=== PATIENT | male | born 1945 | race Caucasian/White ===

== ENCOUNTER 2020-07-01 18:00 | Inpatient (IN) ==
[2020-07-01] MEDS ORDERED: SODIUM CHLORIDE 0.9% 500 ML IV SCH (18:30)
--- NOTE | 2020-07-01 18:35 | Emergency Department Note ---
Impression & Plan Metabolic encephalopathy, NSTEMI (non-ST elevated myocardial infarction), Elevated serum creatinine, Sepsis ED Provider Note Provider: Saurabh Kim MD DATE OF SERVICE:07/01/2020 CHIEF COMPLAINT: Fever, shortness of breath HISTORY OF PRESENT ILLNESS: Patient is a 75-year-old gentleman presenting via ambulance from [facility] today due to persistent fever and shortness of breath and wheezing. Patient himself is quite hard of hearing and is difficult to obtain significant history from him. Report from facility indicate that he had persistent high fever starting today seem to be a wheezing was less oriented than normal. Was given some prednisone earlier today as well as albuterol with persistent systems. Was not noted to be hypoxic there but with some mildly labored breathing per the pre-arrival report. Again the patient himself is unable to participate and provide detailed history. He complains of some pain in his lower legs but otherwise is difficult to obtain more from him. There is no trauma history reported. Patient's records from [facility] were reviewed. He has limited records in our medical system here. Reportedly had a temperature of's high as 102.5 that after Tylenol around 4:30 PM this evening fell to 100. REVIEW OF SYSTEMS: Limited secondary to his mental status and ability to communicate PAST MEDICAL HISTORY: As noted above and for medical records apparently thrombocytopenia, depression, alcohol abuse, pneumonia, dysphasia, acetabular fracture, chronic respiratory failure are noted. MEDICATIONS: Reviewed the MAR from the facility SOCIAL HISTORY: Resident of [facility], additional limited secondary to his mental status. PHYSICAL EXAM: GENERAL: alert to loud verbal stimuli on the stretcher. Head: normocephalic and atraumatic EYES: No injection, discharge or icterus. PERRL. NECK: Trachea midline. Supple. ENT: Mucous membranes pink and moist. LUNGS: Airway patent. No retractions. Some audible wheezing and wheezing on auscultation of the lungs. HEART: Regular rate and rhythm. No chest wall tenderness ABDOMEN: Soft and non-tender, without guarding or rebound. SKIN: Acyanotic, warm, dry, without rashes EXTREMITIES: 1+ left lower leg edema noted. Trace edema of the right lower leg. NEUROLOGICAL: Moves all extremities and withdraws to pain in all extremities. Extremely difficult of hearing. Written communication sometimes gets an appropriate answer. EK bpm normal sinus rhythm without PVC. There is some baseline artifact but no clear ST segment elevation. Question some inferior T wave inversions. Right bundle branch block is noted. V5 V6 T wave inversions also noted. No previous EKGs are available. CONTINUOUS CARDIAC MONITORING: was ordered and showed a heart rate of 72 bpm in normal sinus rhythm Patient's laboratory studies and imaging reviewed. Differential includes Infection, dehydration, metabolic abnormality, hypo/hyperglycemia, electrolyte disturbance, anemia, hypoxia, cardiac sources, i ntracerebral event, toxicologic, neurologic, as well as other pathologies. IMPRESSION/MEDICAL DECISION MAKING: Patient is reports of persistent fever days and wheezing with change in mentation. Patient here is very difficult to obtain history from. Limited records in our system. Reviewed paperwork sent from [facility] as well as available records in [facility] from the [facility] orthopedic appointment. Not having significant focal deficits grossly on exam here. CT the head was completed dalyvenkat saavedra to look for acute intracranial abnormality. Audibly wheezing here and chest x-ray obtained. X-ray that evidence of pneumonia or pneumothorax. Again limited history is available wonder if he has underlying pulmonary disease such as COPD or emphysema perhaps. Given magnesium here initially to see if this would help with wheeze. As he is from a [facility] with fever and respiratory issues, COVID test was ordered. Basic labs and cultures and lactate were sent as well. EKG obtained. Lower suspicion this is acute coronary syndrome. Not significantly hypoxic here and fevers resolved by time of arrival. Patient does have a little bit of edema in the legs question of this could represent some slight fluid overload. Laboratory histo significant leukocytosis of 18.8 and mild anemia. Given this reports a fever today covered appear clear with Zosyn to cover broadly including any possible anaerobes if there was may be an aspiration event. CT of the head without any definite acute intracranial abnormality although there is some motion artifact. Patient does not have significant neck stiffness or tenderness and low suspicion at this point for meningitis. No transaminitis. Pro calcitonin 0.5. TSH within normal limits. CRP is elevated at 19 and troponin is found to 0.306. Lactate elevated at 3. Creatinine appears newly elevated 1.4. Given some hydration here. Covered with Zosyn initially. EKG question some T wave inversions but no clear ST segment elevation. Patient is on aspirin daily. Question if the troponin is demand related to possible infectious source and dehydration. Given IVF. Unsure of exact etiology of the confusion could be related to possible infectious source. No clear source of infection. Given this discussed with the hospitalist for further evaluation as an inpatient. COVID negative. DIAGNOSIS: Metabolic encephalopathy, NSTEMI, elevated creatinine, sepsis DISPOSITION: Hospitalist will evaluate Past Med/Surg History Social History Smoking Status: Unknown if ever smoked Hx Alcohol Use: No Hx Substance Use: No Preferred Language: Tajik Communication Ability: Impaired Manager Community Required: No Current Living Situation: Senior Living Feels Safe at Home: Yes Allergies Allergies Allergy/AdvReac Type Severity Reaction Status Date / Time Tetanus Vaccines and Toxoid Allergy Unknown Unverified 07/01/20 19:42 Home Meds Home Medications Medication Instructions Recorded Confirmed acetaminophen 650 mg PO QID 07/01/20 07/01/20 albuterol sulfate 1.25 mg CONTINUOUS NEBULIZATION QID 07/01/20 07/01/20 aspirin [Aspir-81] 81 mg PO DAILY 07/01/20 07/01/20 carbamide peroxide [Debrox] 2 drp OTB QID 07/01/20 07/01/20 docusate sodium 100 mg PO BID 07/01/20 07/01/20 ferrous sulfate 325 mg PO BID 07/01/20 07/01/20 folic acid 1 mg PO DAILY 07/01/20 07/01/20 lorazepam 0.5 mg PO BID 07/01/20 07/01/20 methyl salicylate-menthol [Bengay 1 applic TOPICAL BID PRN 07/01/20 07/01/20 Greaseless] multivitamin with minerals 1 tab PO DAILY 07/01/20 07/01/20 [Multiple Vitamin-Minerals] oxycodone 5 mg PO BID 07/01/20 07/01/20 oxycodone 5 mg PO Q4H PRN 07/01/20 07/01/20 paroxetine HCl 10 mg PO HS 07/01/20 07/01/20 prednisone 60 mg PO .ONE TIME ONLY 07/01/20 07/01/20 quetiapine 25 mg PO QPM 07/01/20 07/01/20 zinc oxide 1 applic TOPICAL .PRN PRN 07/01/20 07/01/20 zinc oxide 1 applic TOPICAL AMPM 07/01/20 07/01/20 Results & Data (ED) Vital Signs Vital Signs - 24 hr 07/01/20 18:12 07/01/20 19:20 07/01/20 19:30 Temperature 37.2 C Temperature Source Oral Pulse Rate 88 80 76 Pulse Rate from SpO2 Sensor 80 77 Respiratory Rate 18 21 22 Blood Pressure 128/75 111/56 L 99/45 L Blood Pressure Mean 92 72 64 Pulse Oximetry 97 96 95 Oxygen Delivery Method Room Air Sepsis Recent Fever Within 48 Hours Yes Sepsis New/Unexplained Change in Mental Status No Sepsis Action Taken by Nursing Physician Notified 07/01/20 20:00 07/01/20 20:31 07/01/20 21:00 Temperature Temperature Source Pulse Rate 77 80 83 Pulse Rate from SpO2 Sensor 77 82 83 Respiratory Rate 20 18 19 Blood Pressure 101/64 101/65 102/55 L Blood Pressure Mean 80 79 62 Pulse Oximetry 96 97 97 Oxygen Delivery Method Sepsis Recent Fever Within 48 Hours Sepsis New/Unexplained Change in Mental Status Sepsis Action Taken by Nursing 07/01/20 21:30 Temperature Temperature Source Pulse Rate 85 Pulse Rate from SpO2 Sensor Respiratory Rate 20 Blood Pressure 109/56 L Blood Pressure Mean 59 Pulse Oximetry 100 Oxygen Delivery Method Sepsis Recent Fever Within 48 Hours Sepsis New/Unexplained Change in Mental Status Sepsis Action Taken by Nursing Laboratory Data Result diagrams: 07/01/20 18:58 07/01/20 18:58 Lab Results 07/01/20 07/01/20 07/01/20 Range/Units 18:58 18:58 18:58 WBC 18.84 H (4.8-10.8) K/uL RBC 4.44 L (4.7-6.1) M/uL Hgb 11.7 L (14.0-18.0) g/dL Hct 37.4 L (42-52) % MCV 84.2 (80-100) fL MCH 26.4 (25-34) pg MCHC 31.3 L (32-36) g/dL RDW Std Deviation 50.6 H (36.4-46.3) fL RDW Coeff of Ceferino 16.3 H (11.5-14.5) % Plt Count 280 (130-400) K/uL MPV 10.4 (7.4-10.4) fL Immature Gran % (Auto) 0.3 % Neut % (Auto) 90.8 % Lymph % (Auto) 3.3 % Ray % (Auto) 5.5 % Eos % (Auto) 0.0 % Baso % (Auto) 0.1 % Neut # (Auto) 17.10 H (1.4-6.5) K/uL Lymph # (Auto) 0.63 L (1.2-3.4) K/uL Ray # (Auto) 1.04 H (0.11-0.59) K/uL Eos # (Auto) 0.00 (0-0.5) K/uL Baso # (Auto) 0.01 (0-0.2) K/uL Immature Gran # (Auto) 0.06 H (0.00-0.02) K/uL PT 11.8 (9.0-12.0) Seconds INR 1.1 (0.9-1.1) VBG pH (7.36-7.41) VBG pCO2 (38-50) mmHg VBG pO2 mmHg VBG HCO3 mmol/L VBG O2 Saturation % VBG Base Excess mEq/L Barometric Pressure mm/Hg Sodium 138 (136-145) mmol/L Potassium 3.9 (3.5-5.1) mmol/L Chloride 105 (98-107) mmol/L Carbon Dioxide 25 (21-32) mmol/L Anion Gap 8.0 (3-11) BUN 35 H (7-18) mg/dl Creatinine 1.41 H (0.6-1.4) mg/dl Est Cr Clr Drug Dosing Not Reportable Est GFR ( Amer) 55.3 Est GFR (Non-Af Amer) 47.7 BUN/Creatinine Ratio 24.9 H (10-20) Glucose 164 H (70-99) mg/dl Lactate (0.4-2.0) mmol/L Calcium 9.0 (8.5-10.1) mg/dl Total Bilirubin 0.6 (0.2-1) mg/dl AST 28 (15-37) U/L ALT 39 (12-78) U/L Alkaline Phosphatase 110 (45-117) U/L Troponin I 0.306 H* (0-0.045) ng/ml C-Reactive Protein 19.30 H (0-0.29) mg/dl Total Protein 7.9 (6.4-8.2) gm/dl Albumin 3.2 L (3.4-5.0) gm/dl Globulin 4.7 H (2.5-4.0) gm/dl Albumin/Globulin Ratio 0.7 L (0.9-2) Lipase 24 L (73-393) U/L Procalcitonin (0-0.5) ng/ml TSH 0.496 (0.300-4.500) uIu/ml COVID-19 Eval Order COVID-19 PCR (Negative) 07/01/20 07/01/20 07/01/20 Range/Units 18:58 18:58 19:43 WBC (4.8-10.8) K/uL RBC (4.7-6.1) M/uL Hgb (14.0-18.0) g/dL Hct (42-52) % MCV (80-100) fL MCH (25-34) pg MCHC (32-36) g/dL RDW Std Deviation (36.4-46.3) fL RDW Coeff of Ceferino (11.5-14.5) % Plt Count (130-400) K/uL MPV (7.4-10.4) fL Immature Gran % (Auto) % Neut % (Auto) % Lymph % (Auto) % Ray % (Auto) % Eos % (Auto) % Baso % (Auto) % Neut # (Auto) (1.4-6.5) K/uL Lymph # (Auto) (1.2-3.4) K/uL Ray # (Auto) (0.11-0.59) K/uL Eos # (Auto) (0-0.5) K/uL Baso # (Auto) (0-0.2) K/uL Immature Gran # (Auto) (0.00-0.02) K/uL PT (9.0-12.0) Seconds INR (0.9-1.1) VBG pH (7.36-7.41) VBG pCO2 (38-50) mmHg VBG pO2 mmHg VBG HCO3 mmol/L VBG O2 Saturation % VBG Base Excess mEq/L Barometric Pressure mm/Hg Sodium (136-145) mmol/L Potassium (3.5-5.1) mmol/L Chloride (98-107) mmol/L Carbon Dioxide (21-32) mmol/L Anion Gap (3-11) BUN (7-18) mg/dl Creatinine (0.6-1.4) mg/dl Est Cr Clr Drug Dosing Est GFR ( Amer) Est GFR (Non-Af Amer) BUN/Creatinine Ratio (10-20) Glucose (70-99) mg/dl Lactate 3.1 H* (0.4-2.0) mmol/L Calcium (8.5-10.1) mg/dl Total Bilirubin (0.2-1) mg/dl AST (15-37) U/L ALT (12-78) U/L Alkaline Phosphatase (45-117) U/L Troponin I (0-0.045) ng/ml C-Reactive Protein (0-0.29) mg/dl Total Protein (6.4-8.2) gm/dl Albumin (3.4-5.0) gm/dl Globulin (2.5-4.0) gm/dl Albumin/Globulin Ratio (0.9-2) Lipase (73-393) U/L Procalcitonin 0.50 (0-0.5) ng/ml TSH (0.300-4.500) uIu/ml COVID-19 Eval Order Covid19 Done at [facility] COVID-19 PCR (Negative) 07/01/20 07/01/20 Range/Units 19:43 20:15 WBC (4.8-10.8) K/uL RBC (4.7-6.1) M/uL Hgb (14.0-18.0) g/dL Hct (42-52) % MCV (80-100) fL MCH (25-34) pg MCHC (32-36) g/dL RDW Std Deviation (36.4-46.3) fL RDW Coeff of Ceferino (11.5-14.5) % Plt Count (130-400) K/uL MPV (7.4-10.4) fL Immature Gran % (Auto) % Neut % (Auto) % Lymph % (Auto) % Ray % (Auto) % Eos % (Auto) % Baso % (Auto) % Neut # (Auto) (1.4-6.5) K/uL Lymph # (Auto) (1.2-3.4) K/uL Ray # (Auto) (0.11-0.59) K/uL Eos # (Auto) (0-0.5) K/uL Baso # (Auto) (0-0.2) K/uL Immature Gran # (Auto) (0.00-0.02) K/uL PT (9.0-12.0) Seconds INR (0.9-1.1) VBG pH 7.44 H (7.36-7.41) VBG pCO2 35 L (38-50) mmHg VBG pO2 33 mmHg VBG HCO3 23 mmol/L VBG O2 Saturation < 60.0 % VBG Base Excess -0.7 mEq/L Barometric Pressure 737.5 mm/Hg Sodium (136-145) mmol/L Potassium (3.5-5.1) mmol/L Chloride (98-107) mmol/L Carbon Dioxide (21-32) mmol/L Anion Gap (3-11) BUN (7-18) mg/dl Creatinine (0.6-1.4) mg/dl Est Cr Clr Drug Dosing Est GFR ( Amer) Est GFR (Non-Af Amer) BUN/Creatinine Ratio (10-20) Glucose (70-99) mg/dl Lactate (0.4-2.0) mmol/L Calcium (8.5-10.1) mg/dl Total Bilirubin (0.2-1) mg/dl AST (15-37) U/L ALT (12-78) U/L Alkaline Phosphatase (45-117) U/L Troponin I (0-0.045) ng/ml C-Reactive Protein (0-0.29) mg/dl Total Protein (6.4-8.2) gm/dl Albumin (3.4-5.0) gm/dl Globulin (2.5-4.0) gm/dl Albumin/Globulin Ratio (0.9-2) Lipase (73-393) U/L Procalcitonin (0-0.5) ng/ml TSH (0.300-4.500) uIu/ml COVID-19 Eval Order COVID-19 PCR NEGATIVE (Negative) Administered Medications Vancomycin HCl 2,000 mg/ (Sodium Chloride) 540 mls @ 200 mls/hr IV TODAY@0000 CHRISTIN; Protocol Stop: 07/02/20 02:41 Last Admin: 07/01/20 23:52 Dose: 200 mls/hr Documented by: [id number] Lactated Ringer's (Lr) 1,000 mls @ 125 mls/hr IV .Q8H CHRISTIN Stop: 07/31/20 23:21 Last Admin: 07/01/20 23:40 Dose: 125 mls/hr Documented by: [id number] Discontinued Medications Aspirin (Aspirin Chew 324 Mg) 324 mg PO NOW STA Stop: 07/01/20 20:40 Last Admin: 07/01/20 21:08 Dose: 324 mg Documented by: [id number] Sodium Chloride (Nss) 500 mls @ 999 mls/hr IV .Q31M CHRISTIN Stop: 07/01/20 19:00 Last Infusion: 07/01/20 22:47 Dose: 0 mls/hr Documented by: [id number] Admin: 07/01/20 20:46 Dose: 999 mls/hr Documented by: [id number] Magnesium Sulfate/Dextrose (Magnesium Sulfate / D5w) 1 gm in 100 mls @ 400 mls/hr IV Q15M CHRISTIN Stop: 07/01/20 18:59 Last Infusion: 07/01/20 22:46 Dose: 0 mls/hr Documented by: [id number] Admin: 07/01/20 20:29 Dose: 400 mls/hr Documented by: [id number] Piperacillin Sod/Tazobactam Sod (Zosyn) 4.5 gm in 120 mls @ 240 mls/hr IV NOW ONE Stop: 07/01/20 19:50 Last Infusion: 07/01/20 22:47 Dose: 0 mls/hr Documented by: [id number] Admin: 07/01/20 20:29 Dose: 240 mls/hr Documented by: [id number] Sodium Chloride (Nss) 500 mls @ 999 mls/hr IV .Q31M ONE Stop: 07/01/20 20:22 Last Infusion: 07/01/20 22:47 Dose: 0 mls/hr Documented by: [id number] Admin: 07/01/20 21:08 Dose: 999 mls/hr Documented by: [id number] Discharge Plan Visit Data Chief Complaint: Fever Stated Complaint: FEVER, SOB ED Provider: Saurabh Kim Discharge Problem: Metabolic encephalopathy, NSTEMI (non-ST elevated myocardial infarction), Elevated serum creatinine, Sepsis Patient Disposition: Admitted As Inpatient Discharge Instructions Interventions: ED Discharge Assessment Last Done: 07/01/20 22:49 Discharge Problem: Sepsis Qualifiers: Sepsis type: sepsis due to unspecified organism Sepsis acute organ dysfunction status: with acute organ dysfunction Severe sepsis acute organ dysfunction type: encephalopathy Severe sepsis shock status: without septic shock Qualified Code(s): A41.9 - Sepsis, unspecified organism
--- NOTE | 2020-07-01 18:42 | XRay Report ---
XR chest 1V portable HISTORY: Fever. Shortness of breath. COMPARISON: None. FINDINGS: Mild diffuse interstitial thickening. This is likely chronic. No focal lung consolidations. No pleural effusions. No pneumothorax. The heart is mildly enlarged. Chronic deformity within the ri ght humeral head. IMPRESSION: Cardiomegaly and mild diffuse interstitial thickening which is likely chronic. No focal lung consolid ations. ACT 112: Negative or not required by law. Electronically signed by: Kendall Gong M.D. 07/01/2020 6:40 PM
[2020-07-01] MEDS ORDERED: MAGNESIUM SULFATE / D5W 1 GM/100 ML BAG IV SCH (18:45)
[2020-07-01 19:15] LABS: Basophils # (auto) 0.01 K/uL (0-0.2); Basophils % (auto) 0.1 %; Hematocrit (blood only) 37.4 % (42-52); Hemoglobin 11.7 g/dL (14.0-18.0); Immature Granulocytes # (auto) 0.06 K/uL (0.00-0.02); Immature Granulocytes % (auto) 0.3 %; Lymphocytes # (auto) 0.63 K/uL (1.2-3.4); Lymphocytes % (auto) 3.3 %; Mean Corpuscular Hemoglobin 26.4 pg (25-34); Mean Corpuscular Hgb Conc 31.3 g/dL (32-36); Mean Corpuscular Volume 84.2 fL (80-100); Mean Platelet Volume 10.4 fL (7.4-10.4); Monocytes # (auto) 1.04 K/uL (0.11-0.59); Monocytes % (auto) 5.5 %; Neutrophils % (auto) 90.8 %; Platelet Count 280 K/uL (130-400); RDW Coefficient of Variation 16.3 % (11.5-14.5); RDW Standard Deviation 50.6 fL (36.4-46.3); Red Blood Count 4.44 M/uL (4.7-6.1); White Blood Count 18.84 K/uL (4.8-10.8)
[2020-07-01] MEDS ORDERED: PIPERACILL/TAZOBAC CONSULT ACTIVE PRN ×2 (19:21→23:22)
[2020-07-01] MEDS ORDERED: PIPERACILLIN/TAZOBACTAM 4.5 GM/120 ML BAG IV ONE (19:21)
--- NOTE | 2020-07-01 19:25 | CT Scan Report ---
HEAD CT NONCONTRAST CT DOSE: 1919.58 mGy.cm HISTORY: Altered mental status. TECHNIQUE: Multiaxial CT images of the head were performed without the use of intravenous contrast. A utomated exposure control was utilized for this study. A dose lowering technique was utilized adheri ng to the principles of ALARA. Comparison: None. Findings: The paranasal sinuses and mastoid air cells are clear. The calvarium and skull base are int act. There is no mass, hematoma, midline shift, acute infarct. White matter hypodensity is nonspecifi c but suggestive of microvascular ischemic change. The ventricles and sulci demonstrate mild age-rela peter involutional changes. Motion artifact. Impression: Motion artifact. No definite acute intracranial abnormality. ACT 112: Negative or not required by law. Electronically signed by: Kendall Gong M.D. 07/01/2020 7:24 PM
[2020-07-01 19:35] LABS: INR 1.1 (0.9-1.1); Prothrombin Time 11.8 Seconds (9.0-12.0)
[2020-07-01 19:41] LABS: Alanine Aminotransferase 39 U/L (12-78); Albumin Level 3.2 gm/dl (3.4-5.0); Aspartate Aminotransferase 28 U/L (15-37); BUN Creatinine Ratio 24.9 (10-20); Blood Urea Nitrogen 35 mg/dl (7-18); Carbon Dioxide 25 mmol/L (21-32); Chloride 105 mmol/L (98-107); Est GFR (African American) 55.3; Est GFR (Non-African American) 47.7; Glucose 164 mg/dl (70-99); Lipase 24 U/L (73-393); Potassium 3.9 mmol/L (3.5-5.1); Sodium 138 mmol/L (136-145)
[2020-07-01] MEDS ORDERED: SODIUM CHLORIDE 0.9% 500 ML IV ONE (19:52)
[2020-07-01 19:57] LABS: Albumin Globulin Ratio 0.7 (0.9-2); Alkaline Phosphatase 110 U/L (45-117); Bilirubin,Total 0.6 mg/dl (0.2-1); Globulin 4.7 gm/dl (2.5-4.0); Thyroid Stimulating Hormone 0.496 uIu/ml (0.300-4.500); Total Protein 7.9 gm/dl (6.4-8.2); Troponin I 0.306 ng/ml (0-0.045)
[2020-07-01] MEDS ORDERED: ASPIRIN CHEW 324 MG PO STA (20:39)
[2020-07-01 21:26] LABS: Base Excess VBG -0.7 mEq/L; HCO3 VBG 23 mmol/L; PCO2 VBG 35 mmHg (38-50); PO2 VBG 33 mmHg; pH VBG 7.44 (7.36-7.41)
[2020-07-01 21:28] LABS: Oxygen Saturation VBG < 60.0 %
--- NOTE | 2020-07-01 21:50 | History & Physical Report ---
Date of Service July 01, 2020 Assessment & Plan (1) Sepsis: Alberto Galindo is a 75 year old man with a past medical history significant for dementia, iron deficiency anemia, Depression, and recent hip fracture status post repair here with fever starting around lunchtime today Sepsis Unclear cause, Some nonspecific interstitial opacities on cxr, still waiting on ruine results Will empirically start on vancomycin and zosyn Blood cultures drawn Given 2 L NSS in ED blood pressure has responded will continue with LR at 125 mls/hour CT chest ordered for nonspecific CXR and wheezing/rales increased work of breathing CT abdomen pelvis ordered for grimacing on palpation Acute metabolic encephalopathy Acute, was having full conversations last week. Likely secondary to his infectious insult Will treat empirically as above, and monitor closely Head CT negative NSTEMI Elevated troponin likely secondary to demand ischemia No clear ischemic changes on ECG WIll trend troponins and get daily ecg to assess for changes as he cannot relate chest pain. ANGELITO No baseline, but creatinine elevated to 1.41 Patient appears dehydrated with dry mucus membranes, no JVD visible, Will rehydrate and recheck BMP tomorrow Iron deficiency anemia Holding PO meds until mental status improves enough to take meds Will restart iron once tolerating PO intake Depression Holding PO meds until mental status improves Hip Fracture Will hold Oxycodone for now, if patient appears to be in pain and mental status improves can reevaluate pain medication F/E/N: LR 125 DVT PPx: lovenox Dispo: Admit for FLuid resuscitation IV vanc and zosyn, Blood and urine culture results and further testing DNR/DNI (2) Metabolic encephalopathy: (3) Dementia: (4) NSTEMI (non-ST elevated myocardial infarction): (5) Elevated serum creatinine: History of Present Illness Chief Complaint: Sepsis Primary Care Provider: [facility] Alberto Galindo is a 75 year old man with a past medical history of Cognitive deficit/dementia, alcochol abuse, tobacco abuse, hip fracture in January of this year repaired by [facility] orthopedics who now resides in [facility]. Per [facility] patient started to develop a fever around lunchtime today he had been well previously despite his baseline dementia. At baseline he is able to converse though he becomes easily confused. On presentation to ED patient is hypotensive tachypneic, pulse is regular, Saturating 100 % on room air. Labwork significant for elevated white blood cell count of 18.84, Anemic with hemoglobin of 11.7, ELevated creatinine of 1.41 BUN of 35. Troponin of .306, CRP of 19.3, COVID testing negative. Head CT singificant for some microvascular ischemic changes, chest XR with nonspecific interstitial thickening. He is unable to give me any history at all. Spoke to daughter in law over phone who told me last weekend patient was able to carry on conversation and this is a major change for him. She would like us to continue his DNR/DNI from [facility] as she feels these are likely his wishes. Allergies Allergy/AdvReac Type Severity Reaction Status Date / Time Tetanus Vaccines and Toxoid Allergy Unknown Unverified 07/01/20 19:42 Home Medications Home Medications Medication Instructions Recorded Confirmed Type acetaminophen 650 mg PO QID 07/01/20 07/01/20 History albuterol sulfate 1.25 mg CONTINUOUS NEBULIZATION QID 07/01/20 07/01/20 History aspirin [Aspir-81] 81 mg PO DAILY 07/01/20 07/01/20 History carbamide peroxide [Debrox] 2 drp OTB QID 07/01/20 07/01/20 History docusate sodium 100 mg PO BID 07/01/20 07/01/20 History ferrous sulfate 325 mg PO BID 07/01/20 07/01/20 History folic acid 1 mg PO DAILY 07/01/20 07/01/20 History lorazepam 0.5 mg PO BID 07/01/20 07/01/20 History methyl salicylate-menthol [Bengay 1 applic TOPICAL BID PRN 07/01/20 07/01/20 History Greaseless] multivitamin with minerals 1 tab PO DAILY 07/01/20 07/01/20 History [Multiple Vitamin-Minerals] oxycodone 5 mg PO BID 07/01/20 07/01/20 History oxycodone 5 mg PO Q4H PRN 07/01/20 07/01/20 History paroxetine HCl 10 mg PO HS 07/01/20 07/01/20 History prednisone 60 mg PO .ONE TIME ONLY 07/01/20 07/01/20 History quetiapine 25 mg PO QPM 07/01/20 07/01/20 History zinc oxide 1 applic TOPICAL .PRN PRN 07/01/20 07/01/20 History zinc oxide 1 applic TOPICAL AMPM 07/01/20 07/01/20 History Past Med/Surg History Social History Smoking Status: Unknown if ever smoked Hx Alcohol Use: No Hx Substance Use: No Preferred Language: Yi Communication Ability: Impaired Cellular Equipment Repairer Required: No marital status: Unknown Current Living Situation: Detention Feels Safe at Home: Yes Assistive Devices: None Review of Systems Review of Systems: Unobtainable due to cognitive status Physical Exam Constitutional: + acute distress, + ill appearing and + behavioral limitations (screaming with nurses groaning and grimacing only for me) Eyes: PERRL, conjunctivae normal, anicteric sclerae ENMT: external ear and nose normal, oropharynx normal Lips cracked tongue and mucus membranes dry Neck: trachea midline, no thyromegaly Respiratory: + retractions and + uses accessory muscles Auscultation: + diminished lung sounds, + rales and + wheezes Cardiovascular: Rate/Rhythm: regular rate and regular rhythm Heart Sounds: no murmur and no cardiac rub Vessels: normal peripheral pulses and dorsalis pedis pulses present Extremities: + edema (Bilateral 2 + pitting edema) Gastrointestinal (Abdomen): normal bowel sounds, patient grimacing with palpation, no masses or organomegaly Skin: no rashes, warm and dry Psychiatric: A+Ox3, euthymic affect Awake oriented x 0 grunting and grimacing for me only screams unintelligibly at the nurse Results & Data Results & Data ([facility]) Vital Signs (Past 12 Hours) Vital Signs Temp Pulse Resp BP Pulse Ox 07/01/20 20:00 77 20 101/64 96 07/01/20 19:30 76 22 99/45 L 95 07/01/20 19:20 80 21 111/56 L 96 07/01/20 18:12 37.2 C 88 18 128/75 97 Supervising Physician Co-Signing Physician Notes Attending addendum: I have physically seen this patient, have supervised the medical residents activities, and agree with the H&P unless as otherwise noted. Assessment and Plan: Non-STEMI- The patient will be admitted to telemetry for serial cardiac enzymes, serial EKG's, cardiac rhythm monitoring and a 2-D echocardiogram with Dopplers. Troponin 0.306 upon admission Continue aspirin 81 mg daily. Sepsis/metabolic encephalopathy- Empiric treatment with vancomycin IV and Zosyn IV per pharmacokinetic monitoring. Follow urine cultures and blood cultures. Patient received and responded to initial ED bolus of 2 L normal saline. Continue rehydration with LR at 125 mL's per hour Follow clinical examination Remainder of orders and notations as noted. Resident Activity Tracking Resident Involvement: Resident Care Provided Care Provided: Adult Hospital Medicine
[2020-07-01] MEDS ORDERED: VANCOMYCIN CONSULT ACTIVE PRN (23:22)
[2020-07-01] MEDS: LACTATED RINGER'S 1,000 ML IV SCH (23:40)
[2020-07-01] MEDS ORDERED: PATIENT'S HEIGHT AND/OR WEIGHT NEEDED SCH (23:45)
[2020-07-02] MEDS ORDERED: VANCOMYCIN HCL 2,000 MG in SODIUM CHLORIDE 0.9% 500 ML IV SCH
[2020-07-02] MEDS: PIPERACILLIN/TAZOBACTAM 3.375 GM in DEXTROSE 5% 100 ML IV SCH (03:59)
--- NOTE | 2020-07-02 07:16 | Hospitalist Progress Note ---
Date of Service July 02, 2020 Assessment & Plan (1) Sepsis: 75 y/o M hx dementia, DELON, depression, hip fx s/p repair 01/2020 who presents from [facility] w/ fever since ~noon on 07/01/20 sepsis from bacteremia, source unknown, acute metabolic encephalopathy - source less likely PNA given lung findings. consider urinary source. defer CT abd/pelv at this time given pros/cons and level of suspicion - BC+ for MRSA. - fever trend: afebrile during this admission w/ exception of 38.6C this AM, since defeversed. reassuring - leukocytosis 18.84. H/H 11.7/37.4. vbg ph 7.44H. pco2 35L. trop .306->.188->0.164 crp 19.3H. lipase 24L. procal wnl. neg covid 07/01 - started on IV vanc/zosyn on admission. switched to IV vanc/cefepime given context of ANGELITO - ordered UA/culture, unable to obtain today because patient unable to cooperate. note that culture will be collected AFTER starting IV abx. continue monitoring of mentation. speech eval when mentation improves. - update on mentation at 5pm. patient is able to converse, but is extremely hard of hearing. On ear exam, he has cerumen in the L ear, but not the right and is able to hear when talking loudly close to his right ear. plan: flush out L ear. will switch from NPO to pureed diet given that patient mentation is much improved. I observed as he sipped water from cup. elevated troponin likely secondary to demand ischemia - ecg not consistent w/ acute infarct. some q wave old infarct findings. compared 07/01 w/ 07/02 for clarification of findings. NSR. RBBB vs. incomplete RBBB. - follow troponins. assess for chest pain when patient able to provide hx likely ANGELITO, baseline unknown - bun/cr 35/1.41 - continue LR 125 wheezing - home med albuterol nebulizer 1.25mg. - increased to 2.5mg which is standard dose. per chart review and pt presentation of symptoms and pt weight, more appropriate R shoulder/arm pain - ordered sling depression - holding PO meds until mental status improves enough to take medications iron-deficiency anemia secondary to chronic blood loss - per outside records from [facility] - H/H per above, anemia is mild - holding PO meds - follow cbc FEN/GI: LR 125. Lovenox for dvt ppx. code status: dnr/dni. dispo: PCU/tele (2) Metabolic encephalopathy: (3) Dementia: (4) Iron deficiency anemia: (5) Wheezing: (6) Depression: Admission and Anticipated Discharge Date Admission Date: July 01, 2020 Supervising Physician Co-Signing Physician Notes I personally examined the patient and verified all carrera points of history and exam, discussed case, and agree with decision making with Dr Pate. hard to really glean any HPI or ROS but at least will make eye contact. seems quite confused and hard of hearing, this plus PPE requirements for COVID pandemic making communication even with slow, deliberate, loud voice very difficult. as best i can tell he would like a sling for his shoulder. vitals noted nad heent nc at mmm. breathing unlabored - has upper airway wheezing type sound without true stridor (is laying in bed curled forward wtih head leaning down) but no rrw good effort. abd soft nd nt no guarding no rigidity. ext no c/c probably ~1+ edema no calf tenderness. skin no rashes no pallor or icterus severe sepsis/septic related ANGELITO - source not clear. by process of elimination probably either UTI or bacteremia. continue broad abx pending cultres - of note urine was not sent initially so while we've ordered it now, it will be after he has had several doses of broad abx. fluids, follow. fortunately looking more stable. severe sepsis due to sepsis, ANGELITO, metabolic/septic encephalopathy. otherwise as above Subjective Patient would say a few phrases such as "is it raining right now?" "look at that ball" "am I going to get food?," but then the speech becomes yelling and incoherent. Complaining of R hip pain and R shoulder pain. Review of Systems Review of Systems: could not obtain ROS due to altered mental status/confusion at time of visit. Msk: + R shoulder/arm pain Physical Exam Physical Exam: General: A&Ox0. confused. not responding to my questions HEENT: Atraumatic, normocephalic. EOMI. dry mm, mildly fissured tongue Pulm: audible panting/wheezing w/o auscultation. shallow breaths on auscultation bilaterally w/ some mild left lung expiratory wheezes. no neck stridor. Cardiac: RRR, -mrg. Radial pulses 2+ bilat Abdominal: Nontender, nondistended, soft. no abd ttp. normal bowel sounds. Results & Data Results & Data ([facility]) Vital Signs (Past 12 Hours) Vital Signs Temp Pulse Pulse Pulse Resp BP BP 07/02/20 07:08 38.6 C H 93 H 24 146/77 H 07/02/20 04:38 37.5 C 87 24 138/69 07/02/20 00:09 36.9 C 73 22 118/76 07/01/20 23:32 37 C 79 28 H 112/53 L 07/01/20 23:22 73 07/01/20 22:30 82 20 105/61 07/01/20 21:30 85 20 109/56 L 07/01/20 21:00 83 19 102/55 L 07/01/20 20:31 80 18 101/65 07/01/20 20:00 77 20 101/64 07/01/20 19:30 76 22 99/45 L 07/01/20 19:20 80 21 111/56 L Pulse Ox 07/02/20 07:08 90 07/02/20 04:38 97 07/02/20 00:09 97 07/01/20 23:32 97 07/01/20 23:22 07/01/20 22:30 07/01/20 21:30 100 07/01/20 21:00 97 07/01/20 20:31 97 07/01/20 20:00 96 07/01/20 19:30 95 07/01/20 19:20 96 Resident Activity Tracking Resident Involvement: Resident Care Provided Care Provided: Adult Hospital Medicine (1) Sepsis Sepsis acute organ dysfunction status: with acute organ dysfunction Sepsis type: sepsis due to unspecified organism Severe sepsis acute organ dysfunction type: encephalopathy Severe sepsis shock status: without septic shock Qualified Code(s): A41.9 - Sepsis, unspecified organism; R65.20 - Severe sepsis without septic shock; G93.40 - Encephalopathy, unspecified
[2020-07-02] MEDS: CARBAMIDE PEROXIDE 6.5% 15 ML BTL OTB SCH ×4 (08:03→19:39)
[2020-07-02] MEDS: ENOXAPARIN INJ 40 MG/0.4 ML SYR SQ SCH (08:03)
[2020-07-02] MEDS: LACTATED RINGER'S 1,000 ML IV SCH (08:03)
--- NOTE | 2020-07-02 08:32 | CT Scan Report ---
CT chest wo con CT DOSE: 805.62 mGy.cm HISTORY: Sepsis possible pneumonia TECHNIQUE: Multiaxial CT images of the chest were performed without contrast. A dose lowering techni que was utilized adhering to the principles of ALARA. COMPARISON: None. FINDINGS: No pneumothorax. No pleural effusions. Mild motion artifact. A few bibasilar linear densiti es consistent with subsegmental atelectasis. Otherwise, no focal lung consolidations to suggest pneum onia. No suspicious lytic or blastic osseous lesions. There is respiratory motion artifact. Advanced degenerative changes within the right shoulder. Small amount of debris within the nondistended esopha aileen. Small hiatus hernia. Limited views of the upper abdomen demonstrate a normal liver and spleen. T he heart is normal in size. Tortuous thoracic aorta. Coronary artery calcifications are noted. No med iastinal or hilar lymphadenopathy. There is a 2.4 x 2.1 cm saccular aneurysm at the under surface of the aortic arch. IMPRESSION: 1. No focal lung consolidations to suggest pneumonia. 2. Small hiatus hernia. 3. 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 ACT 112: Negative or not required by law. Electronically signed by: Kendall Gong M.D. 07/02/2020 8:31 AM
--- NOTE | 2020-07-02 09:48 | Pharmacy Report ---
Pharmacy Abx Initial Consult - Date of Service July 02, 2020 - Pharmacy Dosing Scope Date of Consult: 07/02/20 Consultation requested by: Dr. Kirk Pharmacy is consulted to initiate VANCOMYCIN IV dosing therapy, order appropriate labs and adjust drug dose/frequency. - Subjective The patient is a 75 year old M admitted on 07/01/20 21:50. - Objective Height: 6 ft Weight: 87.4 kg Vital Signs (Past 12hrs): Vital Signs Temp Pulse Pulse Pulse Resp BP BP 07/02/20 07:08 38.6 C H 93 H 24 146/77 H 07/02/20 04:38 37.5 C 87 24 138/69 07/02/20 00:09 36.9 C 73 22 118/76 07/01/20 23:32 37 C 79 28 H 112/53 L 07/01/20 23:22 73 07/01/20 22:30 82 20 105/61 Pulse Ox 07/02/20 07:08 90 07/02/20 04:38 97 07/02/20 00:09 97 07/01/20 23:32 97 07/01/20 23:22 07/01/20 22:30 Lab Results (24hrs): Laboratory Tests (24 Hours) 07/01/20 07/01/20 07/01/20 18:58 18:58 18:58 WBC 18.84 H Neut # (Auto) 17.10 H Creatinine 1.41 H Est Cr Clr Drug Dosing Not Reportable C-Reactive Protein 19.30 H Procalcitonin 0.50 Micro Results: 07/01/20 20:15 Aerobic Blood Culture - Pending Blood Anaerobic Blood Culture - Pending 07/01/20 18:58 Aerobic Blood Culture - Pending Blood Anaerobic Blood Culture - Pending - Risk Factors for Resistance * Resident in a custodial or extended-care facility - Assessment & Plan Assessment 75 year old M empirically ordered VANCOMYCIN + ZOSYN for sepsis of unknown origin. Baseline renal function unknown, SCr today = 1.41, CrCl ~48 ml/min. Plan Vancomycin IV Patient meets criteria for vancomycin AUC dosing nomogram AUC/LELA is the preferred PK/PD target for vancomycin Target AUC/LELA = 400-600 AUC guided dosing is effective and associated with decreased risk of nephrotoxicity * Loading dose: 2000mg (~23 mg/kg) * Maintenance dose: 1000mg IV (~12 mg/kg) every 12 hours * Trough level ordered for 07/03/20 @ 2330. Piperacillin/tazobactam * 4.5g bolus administered over 30 minutes, then 3.375g IV extended infusion every 8 hours for CrCl greater than 20 mL/min. Pharmacy will continue to follow and will adjust dose/frequency as necessary. Thank you.
--- NOTE | 2020-07-02 09:50 | Electrocardiogram Report ---
Test Reason : Blood Pressure : / mmHG Vent. Rate : 078 BPM Atrial Rate : 078 BPM P-R Int : 178 ms QRS Dur : 124 ms QT Int : 420 ms P-R-T Axes : 077 -10 -45 degrees QTc Int : 478 ms Poor data quality, interpretation may be adversely affected Normal sinus rhythm Right bundle branch block Inferior infarct , age undetermined possible Anterolateral infarct , age undetermined Abnormal ECG No previous ECGs available Confirmed by Speedy Tracey ([id number]) on 07/02/2020 9:49:55 AM Referred By: [facility] Confirmed By:Josiah Tracey
--- NOTE | 2020-07-02 09:55 | Electrocardiogram Report ---
Test Reason : Blood Pressure : / mmHG Vent. Rate : 091 BPM Atrial Rate : 091 BPM P-R Int : 184 ms QRS Dur : 114 ms QT Int : 386 ms P-R-T Axes : 074 -53 -30 degrees QTc Int : 474 ms Poor data quality, interpretation may be adversely affected Normal sinus rhythm Left axis deviation Low voltage QRS old inferior AR Incomplete right bundle branch block Abnormal ECG Confirmed by Speedy Tracey ([id number]) on 07/02/2020 9:54:49 AM Referred By: [facility] Confirmed By:Josiah Tracey
[2020-07-02] MEDS ORDERED: CEFEPIME 2,000 MG in SYRINGE 0 ML IV STA (11:18)
[2020-07-02] MEDS: VANCOMYCIN HCL 1,000 MG in SODIUM CHLORIDE 0.9% 250 ML IV SCH (11:49)
[2020-07-02] MEDS: ALBUTEROL 0.083% NEBU SOLN 3 ML VIAL INH SCH ×3 (14:07→20:05)
--- NOTE | 2020-07-02 16:48 | Billing Data ---
Date of Service July 02, 2020 Coding Level of Care Code 73506 Subseq Hosp Care Lvl 3
[2020-07-02] MEDS: oxyCODONE HCL SOLN 5 MG/5 ML UDC PO PRN (21:22)
[2020-07-03] MEDS: CEFEPIME 2,000 MG in SYRINGE 0 ML IV SCH ×2 (01:35→11:28)
[2020-07-03] MEDS: VANCOMYCIN HCL 1,000 MG in SODIUM CHLORIDE 0.9% 250 ML IV SCH (01:35)
[2020-07-03 01:40] LABS: Basophils # (auto) 0.01 K/uL (0-0.2); Basophils % (auto) 0.1 %; Eosinophils # (auto) 0.03 K/uL (0-0.5); Eosinophils % (auto) 0.2 %; Hematocrit (blood only) 37.3 % (42-52); Hemoglobin 11.6 g/dL (14.0-18.0); Immature Granulocytes # (auto) 0.08 K/uL (0.00-0.02); Immature Granulocytes % (auto) 0.4 %; Lymphocytes # (auto) 1.49 K/uL (1.2-3.4); Mean Corpuscular Hemoglobin 26.1 pg (25-34); Mean Corpuscular Hgb Conc 31.1 g/dL (32-36); Mean Corpuscular Volume 83.8 fL (80-100); Mean Platelet Volume 10.4 fL (7.4-10.4); Monocytes # (auto) 1.23 K/uL (0.11-0.59); Monocytes % (auto) 6.6 %; Neutrophils # (auto) 15.67 K/uL (1.4-6.5); Neutrophils % (auto) 84.7 %; Platelet Count 274 K/uL (130-400); RDW Coefficient of Variation 16.2 % (11.5-14.5); RDW Standard Deviation 49.6 fL (36.4-46.3); Red Blood Count 4.45 M/uL (4.7-6.1); White Blood Count 18.51 K/uL (4.8-10.8)
[2020-07-03 02:05] LABS: BUN Creatinine Ratio 31.4 (10-20); Calcium 8.8 mg/dl (8.5-10.1); Est GFR (African American) 70.7; Potassium 3.9 mmol/L (3.5-5.1)
[2020-07-03] MEDS: LACTATED RINGER'S 1,000 ML IV SCH ×3 (05:26→19:53)
[2020-07-03] MEDS: ALBUTEROL 0.083% NEBU SOLN 3 ML VIAL INH SCH ×4 (07:11→20:24)
--- NOTE | 2020-07-03 08:45 | Pharmacy Report ---
Pharmacy Abx Dose Short Note - Date of Service July 03, 2020 - Assessment & Plan Assessment 75 year old M receiving Vancomycin + Cefepime for treatment of bacteremia * Day #2 of antimicrobial therapy * 24-hr Tmax of 38.6oC. No improvement in leukocytosis (18.8k --> 18.5k). Renal fxn improved (SCr 1.41 --> 1.15). * Blood cultures are growing gram positive cocci in clusters and PCR indicates patient is positive for MRSA. * Given MRSA bacteremia and improved renal function, will increase dose today to ensure a trough > 15 mcg/mL. Plan Vancomycin * Increase Vancomycin to 1250 mg IV every 12 hours * Will re-time trough to 07/04/2020 at 1130. This trough will be prior to steady state. * Goal trough level: 15 - 20 mcg/mL. Cefepime (not a pharmacy consult) * 2 gm IV every 12 hours * Appropriate per indication and renal function. Pharmacy will continue to follow and will adjust dose/frequency as necessary. Thank you.
[2020-07-03] MEDS: CARBAMIDE PEROXIDE 6.5% 15 ML BTL OTB SCH ×4 (11:30→22:10)
--- NOTE | 2020-07-03 12:10 | XCELERA ---
[id number]
[2020-07-03] MEDS: oxyCODONE HCL SOLN 5 MG/5 ML UDC PO PRN ×2 (12:27→20:57)
[2020-07-03] MEDS: ENOXAPARIN INJ 40 MG/0.4 ML SYR SQ SCH (12:31)
[2020-07-03] MEDS: VANCOMYCIN HCL 1,250 MG in SODIUM CHLORIDE 0.9% 250 ML IV SCH (14:10)
[2020-07-03 16:26] LABS: Appearance Urine Cloudy (Clear); Bilirubin Urine Negative (Negative); Blood Urine Negative (Negative); Color Urine Yellow; Epithelial Cell Urine Auto >30 /lpf (0-5); Glucose Urine UA Negative (Negative); Ketones Urine Trace (Negative); Leukocyte Esterase Urine Trace (Negative); Nitrite Urine Negative (Negative); Protein Urine 1+ (Negative); RBC Urine Automated 0-4 /hpf (0-4); Specific Gravity Urine 1.026 (1.000-1.030); Urobilinogen Urine Negative (Negative)
[2020-07-03 16:47] LABS: Bacteria Urine Automated 1+ (Negative)
--- NOTE | 2020-07-03 16:58 | Electrocardiogram Report ---
Test Reason : Blood Pressure : / mmHG Vent. Rate : 076 BPM Atrial Rate : 076 BPM P-R Int : 172 ms QRS Dur : 118 ms QT Int : 368 ms P-R-T Axes : 047 -57 -40 degrees QTc Int : 414 ms Normal sinus rhythm Left axis deviation Possible Lateral infarct , age undetermined Inferior-posterior infarct (cited on or before 03-JUL-2020) Abnormal ECG When compared with ECG of 02-JUL-2020 06:40, QT has shortened Confirmed by Speedy Tracey ([id number]) on 07/03/2020 4:57:31 PM Referred By: [facility] Confirmed By:Josiah Tracey
--- NOTE | 2020-07-03 18:19 | Hospitalist Progress Note ---
Date of Service July 03, 2020 Assessment & Plan (1) Sepsis: Alberto Galindo is a 75yo male with dementia, iron deficiency anemia, hip fracture s/p ORIF 01/2020 who presented to the ED from [facility] with fever and confusion on 07/01. Still confused and unable to provide much information. T reating MRSA bacteremia and following lab improvement. MRSA bacteremia -unclear source; CT head/chest/abdomen suggested against pneumonia -unable to obtain UA prior to treatment -originally started on vanc/zosyn, which was switched to vanc/cefepime secondary to ANGELITO -afebrile during this admission except for one temp of 38.6C yesterday afternoon; has been afebrile for over 24hr -still has leukocytosis at 18.5, marginally improved from 18.84 -lactate improved to 1.9 down from 3.4 -will discontinue cefepime if blood cultures show no additional species growing tomorrow -continue oxycodone 5mg PO q6hr prn ANGELITO: resolved -creatinine at 1.15 down from 1.45 -LR reduced from 125mL/hr to 80mL/hr Elevated troponin: downtrending -troponins have trended downward for three readings, most recently 0.164 -EKG not concerning for ischemic event -will not continue to follow Wheezing: not improving nor worsening -continue albuterol nebulizer 2.5mg qidr -obtaining repeat chest x-ray in the morning Right shoulder pain -ordered sling Depression -holding PO home meds until mentation improves and he can safely take PO meds Iron deficiency anemia: per outside records -hemoglobin stable; currently at 11.6 -holding PO meds -CBC qA FENGI: LR @ 80mL/hr DVT prophylaxis: lovenox Code status: DNR/DNI Dispo: PCU (2) Dementia: (3) Iron deficiency anemia: (4) Wheezing: (5) Depression: Admission and Anticipated Discharge Date Admission Date: July 01, 2020 Supervising Physician Co-Signing Physician Notes I also saw the patient with the resident physician and confirmed carrera portions of the history and physical examination. I agree with the impression and plan as noted in the resident documentation. Upon our exam, the patient is in the midst of an nebulized albuterol treatment. He is extremely hard of hearing but answers questions appropriately. He has considerable audible wheezing/noisy breathing, although his pulse oximetry readings are 96 to 98% on room air; suspect some of the wheezing is upper airway congestion and inefficient clearing of oral/postnasal secretions. Lipid cell count elevated at 18,000. Lactate, previously elevated 3.4, it is 1.9 upon repeat. Kidney function is relatively preserved with a BUN of 36, creatinine 1.15. Blood cultures, preliminary shows staph species, final speciation is pending Continue vancomycin and cefepime Gentle IV fluids Lovenox for DVT prophylaxis Chest x-ray to help clarify lung exam Subjective Patient was difficult to arouse and could not provide meaningful answers to questioning despite repeated attempts to communicate by speaking loudly in his right ear. Complains of shoulder pain. Unable to obtain more information. Review of Systems Review of Systems: Unobtainable due to cognitive status Physical Exam Constitutional: + obese and + altered mental status ENMT: external ear and nose normal, oropharynx normal Ears: + hearing impairment Respiratory: does not use accessory muscles and no cough Auscultation: + rales and + wheezes; no crackles Cardiovascular: RRR, no murmur, no edema Gastrointestinal (Abdomen): normal bowel sounds, soft, nontender, no hepatosplenomegaly Neurologic: CN's II-XI intact bilaterally Psychiatric: Mood: + irritable mood Insight: + limited insight Results & Data Results & Data ([facility]) Vital Signs (Past 12 Hours) Vital Signs Temp Pulse Resp BP Pulse Ox 07/03/20 16:13 36.5 C 84 18 125/69 96 07/03/20 15:05 75 22 97 07/03/20 11:25 36.8 C 87 24 120/77 97 07/03/20 11:10 81 22 95 07/03/20 08:14 37.4 C 87 18 110/70 93 07/03/20 07:13 79 22 96 Resident Activity Tracking Resident Involvement: Resident Care Provided Care Provided: Adult Hospital Medicine (1) Sepsis Sepsis acute organ dysfunction status: with acute organ dysfunction Sepsis type: sepsis due to unspecified organism Severe sepsis acute organ dysfunction type: encephalopathy Severe sepsis shock status: without septic shock Qualified Code(s): A41.9 - Sepsis, unspecified organism; R65.20 - Severe sepsis without septic shock; G93.40 - Encephalopathy, unspecified
--- NOTE | 2020-07-03 18:55 | XRay Report ---
XR chest 1V portable HISTORY: 75 years-old Male persistent coarse breath sounds acute shortness of breath COMPARISON: Chest radiograph and chest CT 07/01/2020 TECHNIQUE: Supine AP view of the chest FINDINGS: Limited exam secondary to positioning, notably the left lung apex is partially obscured by the patien t's chin. Cardiomegaly. There is unchanged mild interstitial coarsening. Prominence of the thoracic a ortic arch redemonstrated. No pneumothorax. Mild blunting of the costophrenic angles suggests probabl e atelectasis. No overt pulmonary edema or airspace consolidation typical for pneumonia. Degenerative changes of the shoulders and spine. Healed remote fracture deformity of the proximal right humerus. IMPRESSION: 1. Cardiomegaly without overt pulmonary edema. 2. Unchanged interstitial coarsening, likely chronic. ACT 112: Negative or not required by law. The above report was generated using voice recognition software. It may contain grammatical, syntax o r spelling errors. Electronically signed by: Pawan Jiang M.D. 07/03/2020 6:54 PM
[2020-07-03] MEDS ORDERED: Nursing to Pharmacy Communication SCH ×2 (20:45→23:30)
[2020-07-03] MEDS ORDERED: VANCOMYCIN TROUGH ONE (23:30)
[2020-07-03] MEDS: PIPERACILLIN/TAZOBACTAM 3.375 GM in DEXTROSE 5% 100 ML IV SCH (23:42)
[2020-07-04] MEDS: CEFEPIME 2,000 MG in SYRINGE 0 ML IV SCH (00:25)
[2020-07-04] MEDS: LACTATED RINGER'S 1,000 ML IV SCH ×2 (00:57→12:15)
[2020-07-04] MEDS: VANCOMYCIN HCL 1,250 MG in SODIUM CHLORIDE 0.9% 250 ML IV SCH ×2 (03:09→14:34)
[2020-07-04] MEDS: oxyCODONE HCL SOLN 5 MG/5 ML UDC PO PRN (03:45)
[2020-07-04] MEDS ORDERED: LORazepam 0.5 MG TAB PO STA (05:04)
--- NOTE | 2020-07-04 05:08 | Billing Data ---
Date of Service July 04, 2020 Coding Level of Care Code 29804 Initial Inpt Care Lvl 3
[2020-07-04] MEDS: ALBUTEROL 0.083% NEBU SOLN 3 ML VIAL INH SCH ×4 (07:10→19:24)
[2020-07-04 08:08] LABS: Basophils # (auto) 0.02 K/uL (0-0.2); Basophils % (auto) 0.1 %; Eosinophils # (auto) 0.15 K/uL (0-0.5); Eosinophils % (auto) 0.8 %; Hematocrit (blood only) 31.6 % (42-52); Hemoglobin 10.3 g/dL (14.0-18.0); Immature Granulocytes # (auto) 0.07 K/uL (0.00-0.02); Immature Granulocytes % (auto) 0.4 %; Lymphocytes # (auto) 2.05 K/uL (1.2-3.4); Lymphocytes % (auto) 11.4 %; Mean Corpuscular Hemoglobin 26.6 pg (25-34); Mean Corpuscular Hgb Conc 32.6 g/dL (32-36); Mean Corpuscular Volume 81.7 fL (80-100); Mean Platelet Volume 10.3 fL (7.4-10.4); Monocytes # (auto) 1.33 K/uL (0.11-0.59); Monocytes % (auto) 7.4 %; Neutrophils # (auto) 14.43 K/uL (1.4-6.5); Neutrophils % (auto) 79.9 %; Platelet Count 286 K/uL (130-400); RDW Coefficient of Variation 15.8 % (11.5-14.5); RDW Standard Deviation 47.1 fL (36.4-46.3); Red Blood Count 3.87 M/uL (4.7-6.1); White Blood Count 18.05 K/uL (4.8-10.8)
[2020-07-04] MEDS: CARBAMIDE PEROXIDE 6.5% 15 ML BTL OTB SCH ×4 (08:26→21:01)
[2020-07-04 08:35] LABS: Albumin Level 2.1 gm/dl (3.4-5.0); BUN Creatinine Ratio 31.5 (10-20); Calcium 8.6 mg/dl (8.5-10.1); Creatinine Clr Calc Pharmacy 68.6 ml/min; Est GFR (African American) 84.8; Est GFR (Non-African American) 73.2; Potassium 3.5 mmol/L (3.5-5.1)
[2020-07-04 08:38] LABS: Albumin Globulin Ratio 0.5 (0.9-2); Bilirubin,Total 0.6 mg/dl (0.2-1); Globulin 4.1 gm/dl (2.5-4.0); Total Protein 6.2 gm/dl (6.4-8.2)
[2020-07-04] MEDS: ENOXAPARIN INJ 40 MG/0.4 ML SYR SQ SCH (09:00)
[2020-07-04] MEDS ORDERED: haloperidoL 0.5 MG TAB PO ONE (09:15)
[2020-07-04] MEDS ORDERED: HALOPERIDOL LACTATE 5 MG/ML 1 ML VIAL IM ONE ×2 (11:16→18:12)
[2020-07-04] MEDS ORDERED: VANCOMYCIN TROUGH ONE ×2 (11:30→13:30)
--- NOTE | 2020-07-04 14:47 | Pharmacy Report ---
Pharmacy Abx Dose Short Note - Date of Service July 04, 2020 - Assessment & Plan Assessment 75 year old M receiving Vancomycin for treatment of bacteremia * Day #3 of antimicrobial therapy * Afebrile x 24 hours. Very slight improvement in leukocytosis (18.8k --> 18.5k --> 18k). Renal fxn improving (SCr 1.41 --> 1.15 --> 0.99). * Blood cultures grew MRSA (Vanc LELA = 1). * Cefepime was discontinued today. Plan Vancomycin * Trough level of 17.2 mcg/mL is therapeutic * Continue dose of 1250 mg IV every 12 hours * Goal trough level: 15 to 20 mcg/mL * Trough level ordered for 07/06/2020 at 1330. Pharmacy will continue to follow and will adjust dose/frequency as necessary. Thank you.
--- NOTE | 2020-07-04 17:06 | Hospitalist Progress Note ---
Date of Service July 04, 2020 Assessment & Plan (1) Sepsis: Alberto Galindo is a 75yo male with dementia, iron deficiency anemia, hip fracture s/p ORIF 01/2020 who presented to the ED from [facility] with fever and confusion on 07/01. Still confused and unable to provide much information. T reating MRSA bacteremia and following lab improvement. MRSA bacteremia -unclear source; CT head/chest/abdomen suggested against pneumonia -UA contaminated with epithelial cells -afebrile during this admission except for one temp of 38.6C 07/02 afternoon; has been afebrile for over 24hr -still has leukocytosis at 18.05; on 07/03 was 18.5; on 07/02 was 18.84 -lactate improved to 1.9 down from 3.4 -blood culture final result - MRSA only -continuing vancoycin PO -discontinued cefepime -continue oxycodone 5mg PO q6hr prn Agitation: improved with 1mg haldol -will speak with [id number] to elucidate patient's baseline -haldol 2mg IM prn agitation as a one-time overnight dose, to be given only if patient is attempting to remove medical equipment or is a safety risk to himself or others/medical staff -QTc 414 ANGELITO: resolved -creatinine back at baseline -LR reduced from 125mL/hr to 80mL/hr Elevated troponin: downtrending -troponins have trended downward for three readings, most recently 0.164 -EKG not concerning for ischemic event -will not continue to follow Wheezing: not improving nor worsening -continue albuterol nebulizer 2.5mg qidr -obtaining repeat chest x-ray in the morning Right shoulder pain -ordered sling Depression -holding PO home meds until mentation improves and he can safely take PO meds Iron deficiency anemia: per outside records -hemoglobin at 10.3 down from 11.6 -CBC qAM FENGI: LR @ 80mL/hr DVT prophylaxis: lovenox Code status: DNR/DNI Dispo: PCU (2) Dementia: (3) Iron deficiency anemia: (4) Wheezing: (5) Depression: Admission and Anticipated Discharge Date Admission Date: July 01, 2020 Supervising Physician Co-Signing Physician Notes I also saw the patient confirmed carrera portions of the history and physical examination. I agree with the impression and plan in the resident documentation. At the time of our joint examination, the patient is awake; he is disoriented. He reportedly was agitated overnight and earlier this morning and was medicated with haloperidol. Upon exam, he is hemodynamically stable. Blood pressure 129/60, pulse 89, respiratory rate 18, temperature 37.4 C, pulse oximetry is 97% on room air. His breath sounds are coarse which I suspect are from transmitted upper airway sounds as he is maintaining excellent saturations on room air. White blood cell count 18.05, hemoglobin 10.3 BUN 31, creatinine 0.99. Chest x-ray from yesterday shows cardiomegaly without pulmonary edema, and chronic interstitial changes. Blood cultures show MRSA in 2/2 bottles Urine culture was negative MRSA bacteremia, source uncertain Urine culture is unremarkable (urinalysis 3 white blood cells but was clearly contaminated with greater than 30 epithelial cells per high-power field) Continue vancomycin Gentle IV fluids He is remained afebrile and hemodynamically stable He has baseline dementia and are the most difficult thing to manage at this point Subjective Per nurses, patient was screaming all night and was unable to be calmed down. He was given 0.5mg ativan with no effect. He remained agitated and 0.5mg haldol PO was given, also with no effect. 1mg haldol IM was given and patient calmed down somewhat. He was still unable to provide meaningful information, only saying that he wanted to be "readjusted". He was unable to provide any meaningful review of systems. Review of Systems Review of Systems: Unobtainable due to cognitive status Physical Exam Constitutional: + obese and + altered mental status ENMT: external ear and nose normal, oropharynx normal Ears: + hearing impairment Respiratory: does not use accessory muscles and no cough Auscultation: + rales and + wheezes; no crackles Cardiovascular: RRR, no murmur, no edema Gastrointestinal (Abdomen): normal bowel sounds, soft, nontender, no hepatosplenomegaly Neurologic: CN's II-XI intact bilaterally Psychiatric: Mood: + irritable mood Insight: + limited insight Results & Data Results & Data ([facility]) Vital Signs (Past 12 Hours) Vital Signs Temp Pulse Pulse Pulse Resp BP BP 07/04/20 15:49 87 16 07/04/20 15:29 36.8 C 93 H 21 159/80 H 07/04/20 11:35 113 H 07/04/20 11:09 94 H 20 07/04/20 11:00 37.5 C 90 20 145/81 H 07/04/20 08:35 37.4 C 97 H 22 146/72 H 07/04/20 07:10 89 18 Pulse Ox 07/04/20 15:49 95 07/04/20 15:29 96 07/04/20 11:35 07/04/20 11:09 93 07/04/20 11:00 94 07/04/20 08:35 92 07/04/20 07:10 94 Resident Activity Tracking Resident Involvement: Resident Care Provided Care Provided: Adult Hospital Medicine (1) Sepsis Sepsis acute organ dysfunction status: with acute organ dysfunction Sepsis type: sepsis due to unspecified organism Severe sepsis acute organ dysfunction type: encephalopathy Severe sepsis shock status: without septic shock Qualified Code(s): A41.9 - Sepsis, unspecified organism; R65.20 - Severe sepsis without septic shock; G93.40 - Encephalopathy, unspecified
[2020-07-04] MEDS ORDERED: ACETAMINOPHEN 1,000 MG/100 ML VIAL IV PRN (20:20)
[2020-07-04] MEDS: ACETAMINOPHEN 325 MG TAB PO PRN (21:00)
[2020-07-05] MEDS: ACETAMINOPHEN 325 MG TAB PO PRN ×2 (01:57→23:14)
[2020-07-05] MEDS ORDERED: HALOPERIDOL LACTATE 5 MG/ML 1 ML VIAL IM PRN ×2 (02:05→20:17)
[2020-07-05] MEDS: VANCOMYCIN HCL 1,250 MG in SODIUM CHLORIDE 0.9% 250 ML IV SCH ×2 (02:40→12:18)
[2020-07-05 02:56] LABS: Basophils # (auto) 0.02 K/uL (0-0.2); Basophils % (auto) 0.1 %; Eosinophils # (auto) 0.09 K/uL (0-0.5); Eosinophils % (auto) 0.4 %; Hemoglobin 10.6 g/dL (14.0-18.0); Immature Granulocytes # (auto) 0.11 K/uL (0.00-0.02); Immature Granulocytes % (auto) 0.5 %; Lymphocytes # (auto) 1.41 K/uL (1.2-3.4); Lymphocytes % (auto) 6.4 %; Mean Corpuscular Hemoglobin 26.7 pg (25-34); Mean Corpuscular Hgb Conc 33.1 g/dL (32-36); Mean Corpuscular Volume 80.6 fL (80-100); Mean Platelet Volume 10.3 fL (7.4-10.4); Monocytes # (auto) 1.58 K/uL (0.11-0.59); Monocytes % (auto) 7.1 %; Neutrophils # (auto) 18.96 K/uL (1.4-6.5); Neutrophils % (auto) 85.5 %; Platelet Count 311 K/uL (130-400); RDW Coefficient of Variation 15.6 % (11.5-14.5); RDW Standard Deviation 46.4 fL (36.4-46.3); Red Blood Count 3.97 M/uL (4.7-6.1); White Blood Count 22.17 K/uL (4.8-10.8)
[2020-07-05 03:15] LABS: Creatinine Clr Calc Pharmacy 69.3 ml/min; Est GFR (African American) 85.8; Est GFR (Non-African American) 74.1
[2020-07-05] MEDS: LACTATED RINGER'S 1,000 ML IV SCH ×2 (05:02→17:42)
[2020-07-05] MEDS: ALBUTEROL 0.083% NEBU SOLN 3 ML VIAL INH SCH ×4 (07:34→20:05)
[2020-07-05 08:16] LABS: BUN Creatinine Ratio 25.3 (10-20); Calcium 8.6 mg/dl (8.5-10.1); Creatinine Clr Calc Pharmacy 65.3 ml/min; Est GFR (African American) 79.9; Est GFR (Non-African American) 68.9; Potassium 3.5 mmol/L (3.5-5.1)
[2020-07-05] MEDS ORDERED: INFLUENZA VACCINE HIGH DOSE 65+ 0.5 ML SYR IM ONE (09:00)
[2020-07-05] MEDS ORDERED: PNEUMOCOCCAL ADMINISTRATION CHARGE ONE (09:00)
[2020-07-05] MEDS ORDERED: PNEUMOCOCCAL POLYSACCHARIDES 25 MCG/0.5 ML VIAL/SYR IM ONE (09:00)
[2020-07-05] MEDS ORDERED: INFLUENZA ADMINISTRATION CHARGE ONE (09:00)
[2020-07-05] MEDS: ENOXAPARIN INJ 40 MG/0.4 ML SYR SQ SCH (09:04)
[2020-07-05] MEDS: CARBAMIDE PEROXIDE 6.5% 15 ML BTL OTB SCH ×4 (09:04→21:47)
[2020-07-05] MEDS: CEFEPIME 2,000 MG in SYRINGE 0 ML IV SCH ×2 (10:26→21:47)
--- NOTE | 2020-07-05 10:45 | Hospitalist Progress Note ---
Date of Service July 05, 2020 Assessment & Plan (1) Sepsis: Alberto Galindo is a 75yo male with dementia, iron deficiency anemia, hip fracture s/p ORIF 01/2020 who presented to the ED from [facility] with fever and confusion on 07/01. Still confused and unable to provide much information. T reating MRSA bacteremia and following lab improvement. MRSA bacteremia -fever of 38C at 8pm last night; afebrile since -leukocytosis up to 22.17 from 18.05 yesterday -blood culture final result - MRSA only -continuing vancoycin PO -restarted cefepime IV -continue oxycodone 5mg PO q6hr prn -ID consult: recommended stopping cefepime IV and obtaining CT abdomen/pelvis and CT left hip/LLE; will consider for AM Left hip pain s/p repair with hardware (01/2020) -unclear etiology -XR hips obtained: no acute fracture, healed remote fracture of left hemipelvis with ORIF changes, moderate left and [id number] right hip osteoarthritis -ID consult recommendations as above -likely CT abdomen/pelvis and CT left hip/LLE in AM Agitation: improved with 1mg haldol -haldol 2mg IM prn agitation as a one-time overnight dose, to be given only if patient is attempting to remove medical equipment or is a safety risk to himself or others/medical staff -QTc 414 ANGELITO: resolved -creatinine back at baseline -LR reduced from 125mL/hr to 80mL/hr Elevated troponin: downtrending -troponins have trended downward for three readings, most recently 0.164 -EKG not concerning for ischemic event -will not continue to follow Wheezing -continue albuterol nebulizer 2.5mg qidr Right shoulder pain -ordered sling Depression -holding PO home meds until mentation improves and he can safely take PO meds Iron deficiency anemia: per outside records -hemoglobin at 10.3 down from 11.6 -CBC qAM FENGI: LR @ 80mL/hr DVT prophylaxis: lovenox Code status: DNR/DNI Dispo: PCU (2) Dementia: (3) Iron deficiency anemia: (4) Wheezing: (5) Depression: Admission and Anticipated Discharge Date Admission Date: July 01, 2020 Supervising Physician Co-Signing Physician Notes I saw the patient with the resident physician and confirmed carrera portions of the history and physical examination. I agree with the impression and plan as noted in the resident documentation. Blood pressure 140/85, pulse 96, respiratory rate 22. Pulse oximetry 95% on room air He did have a temperature overnight of 38 C. Upon examination this morning. The patient is calmer. If I talk very loudly he is able to answer yes/no questions appropriately. Upon examination, there appears to be some increased pain with manipulation of the left hip. Due to his dementia, it is difficult to tell if the pain is in his hip or in his knee during my exam. Leukocytosis has risen to 22.1 Hemoglobin is stable at 10.6 Creatinine stable at 1.04 Blood cultures from admission shows staph aureus, MRSA, 2/2. Repeat blood cultures were taken today. Urine culture shows no growth. MRSA bacteremia, source uncertain Progressive leukocytosis and recurrent fever Continue vancomycin Consult infectious disease via telemedicine Will x-ray hips bilaterally given difficulty with exam May need to consider CT in effort to identify source of infection, although this will be difficult as he would likely require some degree of sedation to complete - Mina Aguilar 185 Subjective Overnight, patient was agitated and ripped out an IV line, and so nurses utilized an order for haldol 2mg IM; patient calmed down. This morning, patient remains altered and difficult to communicate with, but expresses pain in his left hip. Unable to obtain much meaningful information beyond that. Review of Systems Review of Systems: Unobtainable due to cognitive status Physical Exam Constitutional: + obese and + altered mental status ENMT: external ear and nose normal, oropharynx normal Ears: + hearing impairment Respiratory: does not use accessory muscles and no cough Auscultation: + rales and + wheezes; no crackles Cardiovascular: RRR, no murmur, no edema Gastrointestinal (Abdomen): normal bowel sounds, soft, nontender, no hepatosplenomegaly Musculoskeletal: moderate tenderness to palpation of the left hip; left knee, right knee, and right hip nontender Neurologic: CN's II-XI intact bilaterally Psychiatric: Mood: + irritable mood Insight: + limited insight Results & Data Results & Data ([facility]) Vital Signs (Past 12 Hours) Vital Signs Temp Pulse Resp BP Pulse Ox 07/05/20 08:18 37.8 C H 85 16 158/84 H 94 07/05/20 07:35 79 19 07/05/20 02:25 36.6 C 07/05/20 01:50 37.4 C Resident Activity Tracking Resident Involvement: Resident Care Provided Care Provided: Adult Hospital Medicine (1) Sepsis Sepsis acute organ dysfunction status: with acute organ dysfunction Sepsis t ype: sepsis due to unspecified organism Severe sepsis acute organ dysfunction type: encephalopathy Severe sepsis shock status: without septic shock Qualified Code(s): A41.9 - Sepsis, unspecified organism; R65.20 - Severe sepsis without septic shock; G93.40 - Encephalopathy, unspecified
[2020-07-05] MEDS ORDERED: LORazepam 2 MG/ML VIAL (IM USE) IM PRN (11:39)
--- NOTE | 2020-07-05 14:43 | XRay Report ---
XR hip JAX 2v w pelvis HISTORY: 75 years-old Male left hip pain patient presents with reported acute bilateral hip pain COMPARISON: None TECHNIQUE: AP view of the pelvis with 2 views of the bilateral hips FINDINGS: Sclerosis and cortical thickening of the left acetabulum is suggestive of healed remote fracture defo rmity. ORIF changes of the left hemipelvis are noted within the left pubic body, superior pubic ramus , acetabulum and inferomedial iliac wing. Moderate left hip osteoarthritis. Mild to moderate right hi p osteoarthritis. Degenerative changes of the lower lumbar spine. No acute fracture, dislocation or a vascular necrosis. Moderate fecal retention. Soft tissues are unremarkable. IMPRESSION: 1. No acute fracture or dislocation identified. 2. Healed remote fracture deformity of the left hemipelvis with ORIF changes. 3. Moderate left and mild to moderate right hip osteoarthritis. ACT 112: Negative or not required by law. The above report was generated using voice recognition software. It may contain grammatical, syntax o r spelling errors. Electronically signed by: Pawan Jiang M.D. 07/05/2020 2:42 PM
[2020-07-06] MEDS: LACTATED RINGER'S 1,000 ML IV SCH ×2 (00:20→08:29)
[2020-07-06] MEDS: VANCOMYCIN HCL 1,250 MG in SODIUM CHLORIDE 0.9% 250 ML IV SCH (02:21)
[2020-07-06] MEDS: ACETAMINOPHEN 325 MG TAB PO PRN (06:25)
[2020-07-06] MEDS: ALBUTEROL 0.083% NEBU SOLN 3 ML VIAL INH SCH ×4 (07:01→19:18)
[2020-07-06 08:08] LABS: Basophils # (auto) 0.02 K/uL (0-0.2); Basophils % (auto) 0.1 %; Eosinophils # (auto) 0.21 K/uL (0-0.5); Eosinophils % (auto) 1.1 %; Hematocrit (blood only) 32.2 % (42-52); Hemoglobin 10.4 g/dL (14.0-18.0); Immature Granulocytes # (auto) 0.15 K/uL (0.00-0.02); Immature Granulocytes % (auto) 0.8 %; Lymphocytes # (auto) 1.35 K/uL (1.2-3.4); Lymphocytes % (auto) 6.9 %; Mean Corpuscular Hemoglobin 26.6 pg (25-34); Mean Corpuscular Hgb Conc 32.3 g/dL (32-36); Mean Corpuscular Volume 82.4 fL (80-100); Mean Platelet Volume 10.8 fL (7.4-10.4); Monocytes # (auto) 1.48 K/uL (0.11-0.59); Monocytes % (auto) 7.5 %; Neutrophils # (auto) 16.48 K/uL (1.4-6.5); Neutrophils % (auto) 83.6 %; Platelet Count 312 K/uL (130-400); RDW Standard Deviation 48.4 fL (36.4-46.3); Red Blood Count 3.91 M/uL (4.7-6.1); White Blood Count 19.69 K/uL (4.8-10.8)
[2020-07-06] MEDS: ENOXAPARIN INJ 40 MG/0.4 ML SYR SQ SCH (08:29)
[2020-07-06 08:36] LABS: BUN Creatinine Ratio 28.6 (10-20); Calcium 8.5 mg/dl (8.5-10.1); Creatinine Clr Calc Pharmacy 71.5 ml/min; Est GFR (African American) 89.1; Est GFR (Non-African American) 76.9; Potassium 3.3 mmol/L (3.5-5.1)
[2020-07-06] MEDS: CEFEPIME 2,000 MG in SYRINGE 0 ML IV SCH ×2 (09:43→22:56)
[2020-07-06] MEDS ORDERED: HALOPERIDOL LACTATE 5 MG/ML 1 ML VIAL IM PRN (10:23)
[2020-07-06] MEDS: oxyCODONE HCL SOLN 5 MG/5 ML UDC PO PRN (11:52)
[2020-07-06] MEDS ORDERED: IOVERSOL 100ml IV ONE (13:11)
[2020-07-06] MEDS ORDERED: VANCOMYCIN TROUGH ONE (13:30)
--- NOTE | 2020-07-06 13:33 | CT Scan Report ---
CT hip LT w con CT DOSE: CLINICAL HISTORY: hip pain, bacteremia, r/o septic arthritis TECHNIQUE: Helical images were acquired in the transverse plane. Sagittal coronal reformatted images were acquired. A dose lowering technique was utilized adhering to the principles of ALARA. COMPARISON STUDY: None. FINDINGS: Note is made of rectosigmoid wall thickening consistent with a proctocolitis. There is left inguinal lymphadenopathy. There is evidence for a prior iliac wing, ischiopubic ring and acetabular fractures which have been i nternally fixated. The iliac bone screws are partially positioned within the left iliopsoas muscle. There is an iliopsoas fluid collection, representing either a distended bursa or abscess. Bony erosive changes involve the femoral head and acetabulum. The findings should be presumed to repr esent a septic arthritis until proven otherwise. There is a small joint effusion. IMPRESSION: 1. Internally fixated pelvic fractures 2. Erosive changes involving the femoral head and acetabulum. The findings should be presumed to repr esent a septic arthritis until proven otherwise 3. 35mm iliopsoas fluid collection, distended bursa versus abscess 4. Left inguinal lymphadenopathy 5. Rectosigmoid wall thickening consistent with a proctocolitis ACT 112: Negative or not required by law. Electronically signed by: Jose Villa M.D. 07/06/2020 1:32 PM
--- NOTE | 2020-07-06 13:38 | CT Scan Report ---
CT OF THE ABDOMEN AND PELVIS WITH CONTRAST CLINICAL HISTORY: Pelvic pain. Left hip pain. Bacteremia. COMPARISON STUDY: None. TECHNIQUE: Following IV administration of 94 mL of Optiray-320, axial images of the abdomen and pelvi s were obtained from the lung bases to the proximal femurs. Images were reviewed in the axial, sagitt al, and coronal planes. IV contrast was administered without complication. Automated exposure contro l was utilized for the study. A dose lowering technique was utilized adhering to the principles of A JOHN. CT DOSE: 1137.39 mGycm FINDINGS: Imaged portions of the lower chest demonstrate trace bilateral pleural effusions. Evaluatio n of the abdomen and pelvis is compromised given motion. No pneumatosis, free air or portal venous ga s is present. The liver, spleen, adrenal glands, kidneys and pancreas are unremarkable. There is no b iliary or pancreatic ductal dilatation. Note is made of an infrarenal abdominal aortic aneurysm. Larg est component measures 4.1 cm. More inferior component measures 3.4 cm. No evidence for rupture. Ther e is extensive plaque. Large amount stool within the colon is noted. There is marked wall thickening of the sigmoid colon and rectum with pericolonic and perirectal infiltration. There is no free air. N ote is made of a left pubic bone/acetabular internal fixation. Fracture is incompletely healed. There is extensive erosion of the left femoral head and acetabulum. A left joint effusion is noted. There is also a fluid collection projecting within the left iliacus muscle, measuring 3.7 x 3.2 cm. This is likely within the iliopsoas bursa. A CT of the left hip will be reported separately. Mildly enlarged left inguinal lymph nodes are likely reactive. Subcutaneous edema within the pelvis and hips, greate r on the left, is noted. IMPRESSION: 1. Marked wall thickening of the sigmoid colon and rectum consistent with a severe proctocolitis, lik rozina infectious in etiology. Pericolonic infiltration. No pericolonic abscess. No free air. 2. Status post left acetabular/pubic internal fixation. Incompletely healed fractures. Erosions of th e left femoral head and acetabulum suspicious for septic arthritis with osteomyelitis. Left hip joint effusion. 3.7 x 3.2 cm fluid collection within the left iliopsoas bursa which may be infected and re present an abscess. 3. 4.1 cm infrarenal abdominal aortic aneurysm. 4. Large amount stool within the colon. No bowel obstruction. 5. Bladder wall thickening and adjacent infiltration which be correlated with urinalysis. ACT 112: Positive. There are findings on this exam that require communication between the performing entity and the patient following Patient Test Result Information Act ([place] Act 112) guidelines. Electronically signed by: Daniele Mello M.D. 07/06/2020 1:36 PM
--- NOTE | 2020-07-06 14:52 | Hospitalist Progress Note ---
Date of Service July 06, 2020 Assessment & Plan (1) Sepsis: Alberto Galindo is a 75yo male with dementia, iron deficiency anemia, hip fracture s/p ORIF 01/2020 who presented to the ED from [facility] with fever and confusion on 07/01. Still confused and unable to provide much information. T reating for MRSA bacteremia with PO vancomycin. He spiked another fever at 23:15 last night of 38.7C, but has been afebrile since midnight. Per ID recommendation, CT abdomen/pelvis and CT hip were obtained today. Findings were suggestive of septic arthritis with osteomyelitis, a left hip joint effusion, a left iliopsoas bursa (likely either infected or represents an abscess), severe proctocolitis likely of infectious etiology, incompletely healed left hip fractures, bladder wall thickening, in addition to other findings. Left hip septic arthritis +/- osteomyelitis +/- iliopsoas abscess in the setting of MRSA bacteremia -febrile to 38.7 at 23:15 yesterday -leukocytosis at 19.7 (yesterday: 22.2) -continue vancoycin PO -considering arthroscopy; patient is a poor procedural candidate due to cognitive status, agitation, and medical fragility -orthopedic consult to assess if abscesses can be aspirated for culture -GI consult for insight on medical management, additional antibiotics, role of steroids -continue oxycodone 5mg PO q6hr prn Severe proctocolitis -continue cefepime IV GI bleed, iron deficiency anemia: FOBT positive today. Suspicious for a chronic upper GI bleed given dark stools, lack of hematochezia, and stable hemoglobin. However, a lower GI bleed is not unlikely given patient's severe proctocolitis and slowed gut peristalsis secondary to opiate administration. -hemoglobin stable overnight - 10.4 today, 10.6 yesterday -iron 325mg every other day ordered -CBC qAM Agitation: improved with 1mg haldol -haldol 2mg IM prn agitation as a one-time overnight dose, to be given only if patient is attempting to remove medical equipment or is a safety risk to [facility] or others/medical staff -QTc 414 ANGELITO: resolved -creatinine back at baseline -LR reduced from 125mL/hr to 80mL/hr Elevated troponin: downtrending -troponins have trended downward for three readings, most recently 0.164 -EKG not concerning for ischemic event -will not continue to follow Wheezing: improved -continue albuterol nebulizer 2.5mg qidr Right shoulder pain -sling ordered Depression, anxiety -holding home paroxetine -restarting home dose seroquel PO qhs FENGI: LR @ 80mL/hr DVT prophylaxis: lovenox Code status: DNR/DNI Dispo: PCU (2) Dementia: (3) Iron deficiency anemia: (4) Wheezing: (5) Depression: Admission and Anticipated Discharge Date Admission Date: July 01, 2020 Supervising Physician Co-Signing Physician Notes I saw the patient with the resident physician and confirmed carrera portions of the history and physical examination. I agree with the impression and plan as noted in the resident documentation. Blood pressure 107/66, pulse 77, respiratory rate 20. Vital signs vary reflecting his degree of agitation Pulse oximetry 97% on room air. Current temperature 37.3 C, T-max 38.7 last evening. Upon examination this morning. The patient is calmer. Given his calmness, it is much easier to auscultate his heart lungs today. There is a soft 2 of 6 soft ejection murmur heard best at the left sternal border. His lungs are clear. Much of the noise heard on previous examination I suspect is transmitted upper airway sounds. Leukocytosis trending down to 19.69 Hemoglobin is stable at 10.4 Creatinine stable at 0.95 Potassium slightly low 3.3 Repeat blood cultures after 48 hours on initial antibiotics show no growth at [address] scan done today shows concern for possible septic arthritis with osteomyelitis and also a left hip joint effusion within the left iliopsoas bursa. There is also a suggestion of severe proctocolitis. MRSA bacteremia, source uncertain Effusion left iliopsoas bursa, question septic arthritis/osteomyelitis Proctocolitis Given his overall health, he is a poor surgical candidate unfortunately. Agree with orthopedic and gastroenterology consultation for their input; perhaps the effusion can be drained, can add additional antibiotic coverage for proctocolitis, perhaps steroids. Minimal intervention/medical intervention may be able to help, although again do not think he is a good surgical candidate. We will gather input from consultants. Depending on his course -certainly if he has any worsening - a palliative approach may also be reasonable. Subjective Mr. Galindo appears to have done well overnight; his nurse had no overnight events to report and he did not receive his prn dose of haldol 2mg IM. This morning, patient remains altered and difficult to communicate with, but expresses pain in his left hip. Unable to obtain additional meaningful information. Review of Systems Review of Systems: could not obtain ROS due to altered mental status/confusion at time of visit. Msk: + R shoulder/arm pain Physical Exam Constitutional: + obese and + altered mental status ENMT: external ear and nose normal, oropharynx normal Ears: + hearing impairment Respiratory: does not use accessory muscles and no cough Auscultation: + rales and + wheezes; no crackles wheezing greatly improved today; still audible on auscultation but far quieter when listening from across the room Cardiovascular: RRR, no murmur, no edema Gastrointestinal (Abdomen): normal bowel sounds, soft, nontender, no hepatosplenomegaly Musculoskeletal: moderate-severe tenderness to palpation of the left hip Neurologic: CN's II-XI intact bilaterally Psychiatric: Mood: + irritable mood Insight: + limited insight Results & Data Results & Data ([facility]) Vital Signs (Past 12 Hours) Vital Signs Temp Pulse Resp BP Pulse Ox 07/06/20 11:46 74 24 95 07/06/20 07:10 36.7 C 76 16 107/66 94 07/06/20 07:02 [address] abdomen/pelvis with IV and oral contrast, impression (per Dr. Daniele Mello): 1. Marked wall thickening of the sigmoid colon and rectum consistent with a severe proctocolitis, likely infectious in etiology. Pericolonic infiltration. No pericolonic abscess. No free air. 2. Status post left acetabular/pubic internal fixation. Incompletely healed fractures. Erosions of the left femoral head and acetabulum suspicious for septic arthritis with osteomyelitis. Left hip joint effusion. 3.7 x 3.2 cm fluid collection within the left iliopsoas bursa which may be infected and represent an abscess. 3. 4.1 cm infrarenal abdominal aortic aneurysm. 4. Large amount stool within the colon. No bowel obstruction. 5. Bladder wall thickening and adjacent infiltration which be correlated with urinalysis. CT left hip, impression (per Dr. Jose Villa): 1. Internally fixated pelvic fractures 2. Erosive changes involving the femoral head and acetabulum. The findings should be presumed to represent a septic arthritis until proven otherwise 3. 35mm iliopsoas fluid collection, distended bursa versus abscess 4. Left inguinal lymphadenopathy 5. Rectosigmoid wall thickening consistent with a proctocolitis Resident Activity Tracking Resident Involvement: Resident Care Provided Care Provided: Adult Hospital Medicine (1) Sepsis Sepsis acute organ dysfunction status: with acute organ dysfunction Sepsis type: sepsis due to unspecified organism Severe sepsis acute organ dysfunction type: encephalopathy Severe sepsis shock status: without septic shock Qualified Code(s): A41.9 - Sepsis, unspecified organism; R65.20 - Severe sepsis without septic shock; G93.40 - Encephalopathy, unspecified
--- NOTE | 2020-07-06 15:31 | Pharmacy Report ---
Pharmacy Abx Dose Short Note - Date of Service July 06, 2020 - Assessment & Plan Assessment * 75 year old M receiving cefepime and vancomycin for treatment of MRSA bacteremia. CT scan revealed source likely septic arthritis and/or osteomyelitis and/or iliopsoas abscess. Apparently patient is not a good surgical candidate. * Persistent WBC elevation and persistent fever spikes possibly 2nd lack of source control rather than failure of vancomycin. Vancomycin likely adequate at this time due to blood cultures from 07/05 w no growth, vancomycin levels that have been good or even elevated, and MRSA LELA of 1 mcg/mL. Switching vancomycin to a different antibiotic like daptomycin could be considered, but ultimately insufficient source control could be a bigger issue. Vancomycin * Goal trough 15-20 mcg/mL * Trough of 23.3 mcg/mL slightly elevated. Will reduce vancomycin dose Plan * Reduce vancomycin to 1000 mg IV q12h * Trough 07/08 @ 2140 Pharmacy will continue to follow and will adjust dose/frequency as necessary. Thank you.
[2020-07-06] MEDS ORDERED: FERROUS SULFATE 325 MG TAB PO SCH (16:00)
[2020-07-06] MEDS: VANCOMYCIN HCL 1,000 MG in SODIUM CHLORIDE 0.9% 250 ML IV SCH (16:40)
[2020-07-06] MEDS ORDERED: SOD PHOSPHATE/SOD BIPHOSPHATE ENEMA 132 ML BTL PR STA (16:42)
--- NOTE | 2020-07-06 16:42 | Gastrointestinal Consultation ---
Date of Consultation July 06, 2020 Assessment & Plan (1) Abnormal CT scan, colon: thickened rectum/sigmoid-----Suspect this is from chronic fecal impaction. Would not use steroids and doube source of infection. obstipation--suspect fecal impaction with overflow diarrhea. Will start from below with enema therapy and depending on results will likely need to use oral route as well. sepsis--likely not GI origin--defer treatment to primary team History of Present Illness Reason for Consultation: proctocolitis on imaging Requesting Physician: DR Magdiel Clark Attending Physician: Mati Aguilar, History of Present Illness CC unobatainable from patient secondary to hearing and cognitive defects. History from chart and nursing staffl HPI Pt admitted with change in mental status and fever. Found to have MRSA bacterimia. CT of hip showed probable septic joint. CT a/p showed large amount of stool and thickening of rectum and sigmoid. Stool heme postive per lab testing. Per nursing having loose stools. PMH dementia, Fe def anmia FHx unobtainable SHx unobtainable Ros unobtainable. Allergies Allergy/AdvReac Type Severity Reaction Status Date / Time Tetanus Vaccines and Toxoid Allergy Unknown Unverified 07/01/20 19:42 Home Medications Home Medications Medication Instructions Recorded Confirmed Type acetaminophen 650 mg PO QID 07/01/20 07/01/20 History albuterol sulfate 1.25 mg CONTINUOUS NEBULIZATION QID 07/01/20 07/01/20 History aspirin [Aspir-81] 81 mg PO DAILY 07/01/20 07/01/20 History carbamide peroxide [Debrox] 2 drp OTB QID 07/01/20 07/01/20 History docusate sodium 100 mg PO BID 07/01/20 07/01/20 History ferrous sulfate 325 mg PO BID 07/01/20 07/01/20 History folic acid 1 mg PO DAILY 07/01/20 07/01/20 History lorazepam 0.5 mg PO BID 07/01/20 07/01/20 History methyl salicylate-menthol [Bengay 1 applic TOPICAL BID PRN 07/01/20 07/01/20 History Greaseless] multivitamin with minerals 1 tab PO DAILY 07/01/20 07/01/20 History [Multiple Vitamin-Minerals] oxycodone 5 mg PO BID 07/01/20 07/01/20 History oxycodone 5 mg PO Q4H PRN 07/01/20 07/01/20 History paroxetine HCl 10 mg PO HS 07/01/20 07/01/20 History prednisone 60 mg PO .ONE TIME ONLY 07/01/20 07/01/20 History quetiapine 25 mg PO QPM 07/01/20 07/01/20 History zinc oxide 1 applic TOPICAL .PRN PRN 07/01/20 07/01/20 History zinc oxide 1 applic TOPICAL AMPM 07/01/20 07/01/20 History Patient History Social History Smoking Status: Unknown if ever smoked Hx Alcohol Use: No Hx Substance Use: No Preferred Language: Spanish 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 Required: No marital status: Unknown Current Living Situation: Shelter Feels Safe at Home: Yes Assistive Devices: None Physical Exam Constitutional: WD/WN, vitals as above Eyes: PERRL, conjunctivae normal, anicteric sclerae ENMT: Ears: + hearing impairment Neck: normal visual inspection and trachea midline Respiratory: normal respiratory effort, lungs clear to auscultation Cardiovascular: RRR, no murmur, no edema Gastrointestinal (Abdomen): pos bs,soft, no guarding nor rebound entire exam with nurse present including rectal exam, digital exam no stool present just mucous, mucosa granular, no obvious mass, Skin: warm and dry Neurologic: PERRL, EOMI, accommodation nl, no face palsy, no dysarthria Psychiatric: Orientation: alert Results & Data ([facility]) Vital Signs (Past 12 Hours) Vital Signs Temp Pulse Resp BP Pulse Ox 07/06/20 15:35 37.3 C 77 20 107/65 97 07/06/20 15:13 74 22 95 07/06/20 11:46 74 24 95 07/06/20 07:10 36.7 C 76 16 107/66 94 07/06/20 07:02 74 22 94
--- NOTE | 2020-07-06 17:55 | Orthopedic Progress Note ---
Date of Service July 06, 2020 Assessment & Plan (1) Hip osteomyelitis, left: I reviewed his CT scan and notes. Agree with radiologist that CT findings are consistent with septic arthritis and osteomyelitis. I spoke with the internal medicine resident, who reports the patient has a very irritable hip on examination, and no other potential source has been found for his MRSA septicemia. He appears to have undergone ORIF of an acetabular fracture in January at [facility], and prior to admission was reportedly much more lucid. I think the only way to restore him back to his baseline is for him to have surgery on his left hip - antibiotics alone will not work. Recommend transfer to [facility] in [place] for definitive surgical management of his left hip osteomyelitis, as this type of surgery is outside my area of expertise. Admission and Anticipated Discharge Date Admission Date: July 01, 2020 Results & Data ([facility]) Vital Signs (Past 12 Hours) Vital Signs Temp Pulse Resp BP Pulse Ox 07/06/20 15:35 37.3 C 77 20 107/65 97 07/06/20 15:13 74 22 95 07/06/20 11:46 74 24 95 07/06/20 07:10 36.7 C 76 16 107/66 94 07/06/20 07:02 74 22 94
--- NOTE | 2020-07-06 19:21 | Discharge Summary ---
Date of Service July 06, 2020 Admission HPI Per Admitting Provider Alberto Galindo is a 75 year old man with a past medical history of Cognitive deficit/dementia, alcochol abuse, tobacco abuse, hip fracture in January of this year repaired by [facility] orthopedics who now resides in [facility]. Per [facility] patient started to develop a fever around lunchtime today he had been well previously despite his baseline dementia. At baseline he is able to converse though he becomes easily confused. On presentation to ED patient is hypotensive tachypneic, pulse is regular, Saturating 100 % on room air. Labwork significant for elevated white blood cell count of 18.84, Anemic with hemoglobin of 11.7, ELevated creatinine of 1.41 BUN of 35. Troponin of .306, CRP of 19.3, COVID testing negative. Head CT singificant for some microvascular ischemic changes, chest XR with nonspecific interstitial thickening. He is unable to give me any history at all. Spoke to daughter in law over phone who told me last weekend patient was able to carry on conversation and this is a major change for him. She would like us to continue his DNR/DNI from [facility] as she feels these are likely his wishes. Admission Exam Per Admitting Provider Constitutional: + acute distress, + ill appearing and + behavioral limitations (screaming with nurses groaning and grimacing only for me) Eyes: PERRL, conjunctivae normal, anicteric sclerae ENMT: external ear and nose normal, oropharynx normal Lips cracked tongue and mucus membranes dry Neck: trachea midline, no thyromegaly Respiratory: + retractions and + uses accessory muscles Auscultation: + diminished lung sounds, + rales and + wheezes Cardiovascular: Rate/Rhythm: regular rate and regular rhythm Heart Sounds: no murmur and no cardiac rub Vessels: normal peripheral pulses and dorsalis pedis pulses present Extremities: + edema (Bilateral 2 + pitting edema) Gastrointestinal (Abdomen): normal bowel sounds, patient grimacing with palpation, no masses or organomegaly Skin: no rashes, warm and dry Psychiatric: A+Ox3, euthymic affect Awake oriented x 0 grunting and grimacing for me only screams unintelligibly at the nurse Principal Diagnosis MRSA bacteremia, septic arthritis of the left hip Discharge Exam Constitutional + obese and + altered mental status ENMT external ear and nose normal, oropharynx normal Ears: + hearing impairment Respiratory does not use accessory muscles and no cough Auscultation: + rales and + wheezes; no crackles Cardiovascular RRR, no murmur, no edema Gastrointestinal (Abdomen) normal bowel sounds, soft, nontender, no hepatosplenomegaly Musculoskeletal moderate-severe tenderness to palpation or passive movement of the left hip Neurologic CN's II-XI intact bilaterally Psychiatric Mood: + irritable mood Insight: + limited insight Discharge Data Allergies Allergy/AdvReac Type Severity Reaction Status Date / Time Tetanus Vaccines and Toxoid Allergy Unknown Unverified 07/01/20 19:42 Consultations 07/01/20 20:38 ED Decision to Admit Stat 07/01/20 23:22 Consult Case Management - Discharge Planning Routine 07/05/20 09:18 Consult Infectious Diseases Routine 07/06/20 15:33 Consult Gastroenterology Routine 07/06/20 15:38 Consult Orthopedic Surgery Routine 07/06/20 19:09 Burn CD for patient Stat Ordered Studies 07/01/20 18:18 CT head/brain wo con Stat 07/01/20 21:47 CT chest wo con Urgent 07/06/20 10:23 CT abd pelvis oral and IV con Urgent CT hip LT w con Urgent Hospital Course (1) Sepsis: Alberto Galindo is a 75yo male with dementia, iron deficiency anemia, hip fracture s/p ORIF 01/2020 who presented to the ED from [facility] with fever and confusion on 07/01. Still confused and unable to provide much information. Treating for MRSA bacteremia with PO vancomycin. He spiked another fever at 23:15 last night of 38.7C, but has been afebrile since midnight. Per ID recommendation, CT abdomen/pelvis and CT hip were obtained today. Findings were suggestive of septic arthritis with osteomyelitis, a left hip joint effusion, a left iliopsoas bursa (likely either infected or represents an abscess), severe proctocolitis likely of infectious etiology, incompletely healed left hip fractures, bladder wall thickening, in addition to other findings. Orthopedic consult recommends transfer to [facility] for patient to be treated by his 01/2020 left hip ORIF primary surgical team. Left hip septic arthritis +/- osteomyelitis +/- iliopsoas abscess in the setting of MRSA bacteremia -febrile to 38.7 at 23:15 yesterday -leukocytosis at 19.7 (yesterday: 22.2) -continue vancoycin 1000mg IV q12h -considering arthroscopy; procedure safety in question due to cognitive status, agitation, and medical fragility -continue oxycodone 5mg PO q6hr prn -GI consult does not recommend steroid administration, defers antibiotic choice to primary medical team -orthopedic consult recommends transfer to [facility] for patient to be treated by his 01/2020 left hip ORIF primary surgical team Severe proctocolitis -continue cefepime IV GI bleed, iron deficiency anemia: FOBT positive today. Suspicious for a chronic upper GI bleed given dark stools, lack of hematochezia, and stable hemoglobin. However, a lower GI bleed is not unlikely given patient's severe proctocolitis and slowed gut peristalsis secondary to opiate administration. -hemoglobin stable overnight - 10.4 today, 10.6 yesterday -iron 325mg every other day ordered -CBC qAM Agitation: improved with 1mg haldol -haldol 2mg IM prn agitation as a one-time overnight dose, to be given only if patient is attempting to remove medical equipment or is a safety risk to himself or others/medical staff -QTc 414 ANGELITO: resolved -creatinine back at baseline -LR reduced from 125mL/hr to 80mL/hr Elevated troponin: downtrending -troponins have trended downward for three readings, most recently 0.164 -EKG not concerning for ischemic event -will not continue to follow Wheezing: improved -continue albuterol nebulizer 2.5mg qidr Right shoulder pain -sling ordered Depression, anxiety -holding home paroxetine -restarting home dose seroquel PO qhs FENGI: LR @ 80mL/hr DVT prophylaxis: lovenox Code status: DNR/DNI Dispo: transfer to [facility] for assesment and treatment by 01/2020 left hip ORIF surgical team (2) Dementia: (3) Iron deficiency anemia: (4) Wheezing: (5) Depression: Total Time Total Time Spent Total Time Spent (In Minutes): 45 Discharge Plan Discharge Items Patient Disposition: Transfer Acute Care Hospital Reason For Visit: SEPSIS Discharge Diagnosis: septic arthritis Activity: Per Instructions section Non-emergency contact: Primary Care Provider and Surgeon Call non-emergency contact if: you have any medication questions and your symptoms worsen Follow-up/Referrals: wKesi Britt [Primary Care Provider] - Diet: Regular Addtl Attending Provider Instructions: Being transferred following discovery of concern for septic arthritis in left hip demonstrated on CT Scan. Pending Studies at Discharge: No Stand-Alone Forms: My [facility] Skilled Items Patient informed of condition?: Yes (informed next of kin) DNR: Yes Discharge Level of Care: Other Communicable Disease: No Discharge Prognosis: Stable Lines: Peripheral IV Urinary Catheter: No Medications and DC Order Prescriptions: Continued acetaminophen 325 mg Tablet 650 mg PO QID RF: 0 albuterol sulfate 1.25 mg/3 mL Solution For Nebulization 1.25 mg continuous nebulization QID RF: 0 aspirin [Aspir-81] 81 mg Tablet,Delayed Release (Dr/Ec) 81 mg PO DAILY RF: 0 Bengay Greaseless 15-10 % Cream 1 applic TOPICAL BID PRN (Reason: Pain) RF: 0 docusate sodium 100 mg Tablet 100 mg PO BID RF: 0 ferrous sulfate 325 mg (65 mg iron) Tablet 325 mg PO BID RF: 0 folic acid 1 mg Tablet 1 mg PO DAILY RF: 0 lorazepam 0.5 mg Tablet 0.5 mg PO BID RF: 0 multivitamin with minerals [Multiple Vitamin-Minerals] Tablet 1 tab PO DAILY RF: 0 carbamide peroxide [Debrox] 6.5 % Drops 2 drp OTB QID RF: 0 oxycodone 5 mg Tablet 5 mg PO BID RF: 0 oxycodone 5 mg Tablet 5 mg PO Q4H PRN (Reason: .PAIN -SCALE 5-10) RF: 0 paroxetine HCl 10 mg Tablet 10 mg PO HS RF: 0 quetiapine 25 mg Tablet 25 mg PO QPM RF: 0 prednisone 20 mg Tablet 60 mg PO .ONE TIME ONLY RF: 0 zinc oxide Cream 1 applic TOPICAL AMPM RF: 0 zinc oxide Cream 1 applic TOPICAL .PRN PRN (Reason: .SCROTAL PAIN) RF: 0 Discharge Orders: Discharge Order (Routine); Ordered 07/06/20 Ordered By: Fernando Lui Admission Data Admit Date/Time: 07/01/20 21:50 Attending Provider: Mati Aguilar Admit Provider: Luis Kirk Primary Care Provider: Kwesi Britt Other Providers: Luis Kirk ; Kwesi Britt ; Samir Barkley ; Dimitry Vega ; Cresencio Rodriguez ; Gene Light I. ; Edilberto Giraldo II ; Miryam Ge ; Dimitris Driver ; Errol Serna ; Nir Blanco Supervising Physician Co-Signing Physician Notes The patient was seen in consultation by orthopedics who recommended that the patient be transferred to the facility where he had his recent hip surgery for definitive surgical management of his left hip osteomyelitis. Given the patient's mental status, the patient's family was contacted and the indications for transfer, including the risk and benefits of transfer, were discussed. They agreed with transfer. Arrangements are pending bed availability and transfer ambulance. Please see my attestation in the daily progress note of the same date for additional clinical information. Resident Activity Tracking Resident Involvement: Resident Care Provided Care Provided: Adult Hospital Medicine
[2020-07-06] MEDS ORDERED: QUEtiapine FUMARATE 25 MG TABLET PO SCH (21:00)
[2020-07-07] MEDS: LACTATED RINGER'S 1,000 ML IV SCH (01:10)
[2020-07-07] MEDS: ACETAMINOPHEN 325 MG TAB PO PRN (01:11)
[2020-07-07] MEDS: VANCOMYCIN HCL 1,000 MG in SODIUM CHLORIDE 0.9% 250 ML IV SCH (04:51)
[2020-07-07] MEDS: oxyCODONE HCL SOLN 5 MG/5 ML UDC PO PRN (05:53)
[2020-07-07] MEDS: ALBUTEROL 0.083% NEBU SOLN 3 ML VIAL INH SCH (07:12)
[2020-07-08] MEDS ORDERED: VANCOMYCIN TROUGH ONE (04:30)
--- NOTE | 2020-07-18 07:13 | Coding Query ---
CODING QUERY To promote full compliance with coding requirements relating to patient care, provider participation is requested in all cases of electrical panel builder uncertainty. Please assist us with the question(s) below: Please clarify the meaning of ANGELITO. ANGELITO is not a valid abbreviation. Thank you. (x) Acute Kidney Injury ( ) Acute Kidney Insufficiency ( ) Other (Specify): Principal Diagnosis: "that condition established after study, to be chiefly responsible for occasioning the admission of the patient to the hospital for care." Co-Existing Principal Diagnosis: "when two or more diagnoses equally meet the criteria for principal diagnosis as determined by the circumstances of admission, diagnostic work up, and/or therapy provided, and the Alphabetic Index, Tabular List, or another coding guideline does not provide sequencing direction, any one of the diagnoses may be sequenced first." "When the physician has documented what appears to be a current diagnosis in the body of the record, but has not included the diagnosis in the final diagnostic statement, the physician should be asked whether the diagnosis should be added." (Source Coding [facility] 2 QTR90. p3-4) KEN
== END 2020-07-07 08:11 | disposition short-term general hospital (02) | DRG 871 ==
LOC: ED 18:00 → SUATTDRO 21:50 → 2S 21:50 → 3W 07-04 15:38